=== PATIENT | male | born 1950 | race Caucasian/White ===

== ENCOUNTER 2017-06-28 14:23 | Emergency (ER) | payer OTHER ==
--- NOTE | 2017-06-28 14:30 | PDOC ---
History of Present Illness <Delvin Olson - Last Filed: 06/28/17 17:15> - General History Source: Patient Exam Limitations: No Limitations - History of Present Illness Initial Comments: 06/28/17 15:39 The patient is a 66 year old male with past medical history of hypertension, hyperlipidemia, panic attacks, and spinal fusion who presents to the ED with complaints of left sided chest and rib pain. The patient relates his pain from when he fell about a week ago, stating he was at a family members house for the holiday and fell 20 feet off the front steps. He reports being unsure of how he fell. He states he was treated at [facility] for three days, unsure of what he was being treating for, and was discharged with Percocet which he has run out off. He states his pain is worsened with deep inspiration and is accompanied by a productive cough. No further history can be provided due to the patient being a poor historian. The patient also is still wearing his medical ID bracelet from the other hospital. <Hedy Francis - Last Filed: 06/28/17 17:33> - General Chief Complaint: Pain Stated Complaint: LEFT RIB PAIN Time Seen by Provider: 06/28/17 14:29 Past History - Past Medical History HTN: Yes Hypercholesterolemia: Yes Psychiatric Problems: Yes (ANXIETY) - Suicide/Smoking/Psychosocial Hx Smoking History: Never smoked Hx Alcohol Use: No Substance Use Type: None <Delvin Olson - Last Filed: 06/28/17 17:15> <Hedy Francis - Last Filed: 06/28/17 17:33> - Past Medical History Allergies/Adverse Reactions: Allergies Allergy/AdvReac Type Severity Reaction Status Date / Time No Known Allergies Allergy Unverified 02/15/14 23:06 Home Medications: Ambulatory Orders Alprazolam [Xanax] 1.5 mg PO QID 02/15/14 Hydrocodone/Acetaminophen [Vicodin 5-300 mg Tablet] 1 each PO PRN #10 tablet Hydrocodone/Acetaminophen [Lortab 10-325 mg Tablet] 1 each PO Q6H PRN #15 tablet 05/13/15 Quetiapine Fumarate [Seroquel -] 50 mg PO DAILY 06/28/17 Review of Systems - Review of Systems Able to Perform ROS?: Yes Comments:: 06/28/17 15:39 GENERAL/CONSTITUTIONAL: No fever or chills. No weakness. HEAD, EYES, EARS, NOSE AND THROAT: No change in vision. No ear pain or discharge. No sore throat. CARDIOVASCULAR: Present: left chest pain No shortness of breath. RESPIRATORY: Present: cough No wheezing, or hemoptysis. GASTROINTESTINAL: No nausea, vomiting, diarrhea or constipation. GENITOURINARY: No dysuria, frequency, or change in urination. MUSCULOSKELETAL: Present: left rib pain No neck or back pain. SKIN: No rash NEUROLOGIC: No headache, vertigo, loss of consciousness, or change in strength/ sensation. ENDOCRINE: No increased thirst. No abnormal weight change. HEMATOLOGIC/LYMPHATIC: No anemia, easy bleeding, or history of blood clots. ALLERGIC/IMMUNOLOGIC: No hives or skin allergy. All Other Systems: Reviewed and Negative <Hedy Francis - Last Filed: 06/28/17 17:33> *Physical Exam - Vital Signs Last Vital Signs Temp Pulse Resp BP Pulse Ox 98 F 78 20 141/77 99 06/28/17 14:24 06/28/17 14:24 06/28/17 14:24 06/28/17 14:24 06/28/17 14:24 - Physical Exam Comments: 06/28/17 15:40 GENERAL: Awake, alert, and fully oriented, in no acute distress HEAD: No signs of trauma EYES: PERRLA, EOMI, sclera anicteric, conjunctiva clear ENT: Auricles normal inspection, hearing grossly normal, nares patent, oropharynx clear without exudates. Moist mucosa NECK: Normal ROM, supple, no lymphadenopathy, JVD, or masses LUNGS: Breath sounds equal, clear to auscultation bilaterally. No wheezes, and no crackles HEART: Regular rate and rhythm, normal S1 and S2, no murmurs, rubs or gallops ABDOMEN: Left rib tenderness on palpation, Soft, normoactive bowel sounds. No guarding, no rebound. No masses EXTREMITIES: Normal range of motion, no edema. No clubbing or cyanosis. No cords, erythema, or tenderness NEUROLOGICAL: Cranial nerves II through XII grossly intact. Normal speech, normal gait SKIN: Warm, Dry, normal turgor, no rashes or lesions noted. <Hedy Francis - Last Filed: 06/28/17 17:33> Heart Score/ECG Review - ECG Intrepretation Comment:: 06/28/17 16:17 ECG obtained at 16:05 Normal sinus rhythm at 68 bpm <Hedy Francis - Last Filed: 06/28/17 17:33> ED Treatment Course - RADIOLOGY Radiograph Interpretation: 06/28/17 17:[address] as reviewed by Dr. Mcknight reports subacute nondisplaced fracture of left 7th rib with edema and/or hematoma. Nonspecific pulmonary nodules seen up to 4 mm in left lower lobe. Mildly dilated main pulmonary artery. <Hedy Francis - Last Filed: 06/28/17 17:33> *DC/Admit/Observation/Transfer - Discharge Dispostion Admit: No - Attestations Physician Attestion: 06/28/17 15:27 I, Dr. Devlin Olson, attest that this document has been prepared under my direction and personally reviewed by me in its entirety. I further attest, that it accurately reflects all work, treatment, procedures and medical decision -making performed by me. <Delvin Olsno - Last Filed: 06/28/17 17:15> - Attestations Scribe Attestion: 06/28/17 15:41 Documentation prepared by Hedy Francis, acting as medical office assistant instructor for Delvin Olson DO. 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 You do have one rib fracture (#7) You will need to see a pain managment doctor for more percocet, or perhaps your primary care doctor. You have already had several short term prescriptions for Percocet/oxycodone. Best- Dr. Delvin Olson Take a copy of the CT Scan results with you so that you can show it to your doctor. You probably need a follow up CT scan of your chest in six months time.
[2017-06-28] MEDS ORDERED: ONDANSETRON *ODT* 4 MG TABLET SL ONE (15:26)
[2017-06-28 15:36] VITALS: BP 141/77; PULSE 78; TEMP 98; BMI 32.9
[2017-06-28] MEDS ORDERED: ONDANSETRON *ODT* 4 MG TABLET ONE (15:54)
--- NOTE | 2017-06-29 19:35 | EKG ---
Test Reason : Blood Pressure : / mmHG Vent. Rate : 068 BPM Atrial Rate : 068 BPM P-R Int : 180 ms QRS Dur : 094 ms QT Int : 418 ms P-R-T Axes : 039 044 071 degrees QTc Int : 444 ms NORMAL SINUS RHYTHM NORMAL ECG NO PREVIOUS ECGS AVAILABLE Confirmed by TACO ZHAO MD ([id number]) on 06/29/2017 7:34:50 PM Referred By: MD GATICA Confirmed By:TACO ZHAO MD
== END 2017-06-28 17:34 | disposition home or self-care (01) ==
LOC: FER 14:23
DX: S22.32XK Fracture of one rib, left side, subsequent encounter for fracture with nonunion (principal); W18.39XA Other fall on same level, initial encounter; Y93.89 Activity, other specified; Y92.9 Unspecified place or not applicable; F41.9 Anxiety disorder, unspecified; I10 Essential (primary) hypertension; E78.00 Pure hypercholesterolemia, unspecified
CPT/HCPCS: 71250-TC; 93005; 99282-25

== ENCOUNTER 2017-07-03 21:31 | Inpatient (IN) | payer OTHER ==
[2017-07-03 21:37] VITALS: BMI 32.3
--- NOTE | 2017-07-03 21:37 | PDOC ---
History of Present Illness - General History Source: Patient Exam Limitations: Dementia - History of Present Illness Initial Comments: 07/03/17 22:22 The patient is a 66 year old male, with a significant past medical history of spinal fusion and sciatica, who presents to the emergency department with, s/p fall. The patient is severely demented and reports to have fallen on a waxy floor. The patient was unable to form coherent statements. He reports to live with a roommate. He has three different hospital wrist bands. He frequently is in the ED for similar symptoms. He was at [facility] one week ago for similar symptoms requesting a prescription for Percocet and Valium. He denies any recent fevers, chills, headache or dizziness. He denies any recent nausea, vomit, diarrhea or constipation. He denies any recent chest pain or shortness of breath. He denies any recent dysuria, frequency, urgency or hematuria. Allergies: NKA Past surgical history: None reported. Social History: Nonsmoker. Denies EtOH use and recreational drug use. <Yasmin Pro - Last Filed: 07/03/17 22:24> <Delvin Olson - Last Filed: 07/04/17 02:16> - General Chief Complaint: Injury Stated Complaint: BIBA, FALL Time Seen by Provider: 07/03/17 21:37 Past History <Yasmin Pro - Last Filed: 07/03/17 22:24> - Past Medical History COPD: No HTN: Yes Hypercholesterolemia: Yes Psychiatric Problems: Yes (ANXIETY) - Suicide/Smoking/Psychosocial Hx Smoking History: Unknown if ever smoked Have you smoked in the past 12 months: No Number of Cigarettes Smoked Daily: 0 Information on smoking cessation initiated: No Hx Alcohol Use: No Drug/Substance Use Hx: No Substance Use Type: None <Delvin Olson - Last Filed: 07/04/17 02:16> - Past Medical History Allergies/Adverse Reactions: Allergies Allergy/AdvReac Type Severity Reaction Status Date / Time No Known Allergies Allergy Unverified 02/15/14 23:06 Home Medications: Ambulatory Orders Alprazolam [Xanax] 1.5 mg PO QID 02/15/14 Hydrocodone/Acetaminophen [Vicodin 5-300 mg Tablet] 1 each PO PRN #10 tablet Hydrocodone/Acetaminophen [Lortab 10-325 mg Tablet] 1 each PO Q6H PRN #15 tablet 05/13/15 Quetiapine Fumarate [Seroquel -] 50 mg PO DAILY 06/28/17 Review of Systems - Review of Systems Able to Perform ROS?: No Comments:: 07/03/17 22:22 Patient is severely incoherent and has three hospital wrist bands from different hospitals currently. <Yasmin Pro - Last Filed: 07/03/17 22:24> *Physical Exam - Vital Signs Last Vital Signs Temp Pulse Resp BP Pulse Ox 98 F 72 14 105/67 96 07/03/17 21:33 07/03/17 21:33 07/03/17 21:33 07/03/17 21:33 07/03/17 21:33 - Physical Exam Comments: 07/03/17 22:24 GENERAL: Awake, alert, and fully oriented, in no acute distress HEAD: No signs of trauma EYES: PERRLA, EOMI, sclera anicteric, conjunctiva clear ENT: Auricles normal inspection, hearing grossly normal, nares patent, oropharynx clear without exudates. Moist mucosa NECK: Normal ROM, supple, no lymphadenopathy, JVD, or masses LUNGS: Breath sounds equal, clear to auscultation bilaterally. No wheezes, and no crackles HEART: Regular rate and rhythm, normal S1 and S2, no murmurs, rubs or gallops ABDOMEN: Soft, nontender, normoactive bowel sounds. No guarding, no rebound. No masses EXTREMITIES: Normal range of motion, no edema. No clubbing or cyanosis. No cords, erythema, or tenderness NEUROLOGICAL: +Incapable of performing a neurological exam due to altered mental state. SKIN: Warm, Dry, normal turgor, no rashes or lesions noted. <Yasmin Pro - Last Filed: 07/03/17 22:24> - Vital Signs Last Vital Signs Temp Pulse Resp BP Pulse Ox 98 F 72 14 105/67 96 07/03/17 21:33 07/03/17 21:33 07/03/17 21:33 07/03/17 21:33 07/03/17 21:33 <Delvin Olson - Last Filed: 07/04/17 02:16> ED Treatment Course - LABORATORY CBC & Chemistry Diagram: 07/03/17 23:30 07/03/17 23:30 <Delvin Olson - Last Filed: 07/04/17 02:16> Medical Decision Making - Medical Decision Making 07/04/17 02:04 Patient has several armbands on his wrist and has had multiple visits here.... it is clear to me that he is too confused and weak to be at home.... He is not alert to person, place, time or situation. He can barely walk and he can barely follow commands. His work up is unremarkable except for some liver enzyme abnormalitis and some atrophy/brain loss on CT Scan. No family to let us know if this is his baseline mental status. He was taking narcotics and benzo's but I don't think he actually has any of those left. <Delvin Olson - Last Filed: 07/04/17 02:16> *DC/Admit/Observation/Transfer - Attestations Scribe Attestion: 07/03/17 22:23 Documentation prepared by Yasmin Pro, acting as medical consultant for Delvin Olson MD. <Yasmin Pro - Last Filed: 07/03/17 22:24> - Discharge Dispostion Admit: Yes - Attestations Physician Attestion: 07/03/17 21:37 I, Dr. Delvin Olson, attest that this document has been prepared under my direction and personally reviewed by me in its entirety. I further attest, that it accurately reflects all work, treatment, procedures and medical decision -making performed by me. <Delvin Olson - Last Filed: 07/04/17 02:16> Diagnosis at time of Disposition: Confusion, Generalized weakness Altered mental status Qualifiers: Altered mental status type: stupor Qualified Code(s): R40.1 - Stupor - Discharge Dispostion Condition at time of disposition: Good
[2017-07-03 23:42] LABS: BASOPHIL 1.7 % (0-2.0); EOSINOPHIL 1.7 % (0-4.5); MCH 30.2 pg (25.7-33.7); MCHC 32.9 g/dl (32.0-35.9); MEAN CELL VOLUME 91.8 fl (80-96); MEAN PLT VOLUME 8.8 fl (7.5-11.1); NEUTROPHILS 66.6 % (42.8-82.8); PLATELET COUNT 262 K/MM3 (134-434); RDW 13.5 % (11.9-15.9); WHITE BLOOD COUNT 10.7 K/mm3 (4.0-10.8)
[2017-07-03 23:48] LABS: INR 1.2 (0.82-1.09); PROTHROMBIN TIME (PATIENT) 13.4 SEC (10.2-13.0)
[2017-07-03 23:53] LABS: ALBUMIN 3.9 g/dl (3.5-5.0); ALK PHOS 98 U/L (32-92); ANION GAP 11 (8-16); BILIRUBIN,TOTAL 1.7 mg/dl (0.2-1.0); CO2 22 mmol/L (22-28); GLUCOSE,RANDOM 70 mg/dl (74-106); SGPT/ALT 106 U/L (10-40); TOT PROT 6.9 g/dl (6.4-8.3)
[2017-07-04 00:03] LABS: SGOT/AST 485 U/L (10-42)
[2017-07-04 01:51] LABS: URINE APPEARANCE SLCLOUDY; URINE BILIRUBIN NEGATIVE (NEGATIVE); URINE BLOOD 1+ (NEGATIVE); URINE COLOR YELLOW; URINE GLUCOSE (UA) NEGATIVE (NEGATIVE); URINE KETONE 2+ (NEGATIVE); URINE NITRITE NEGATIVE (NEGATIVE); URINE UROBILINOGEN NEGATIVE mg/dL (0.2-1.0)
[2017-07-04 02:00] LABS: URINE PROTEIN 1+ (NEGATIVE)
[2017-07-04 02:16] LABS: URINE BACTERIA RARE /hpf (NONE SEEN); URINE HYALINE CAST 17 /lpf; URINE MUCUS RARE; URINE RBC 1 /hpf (0-3); URINE WBC 2 /hpf (3-5)
[2017-07-04 02:22] LABS: URINE MARIJUANA THC NEGATIVE ng/ml (CUTOFF=50)
[2017-07-04] MEDS ORDERED: SODIUM CHLORIDE 1,000 ML IV SCH ×2 (02:30→13:59)
[2017-07-04] MEDS ORDERED: [UNRECOGNIZED DRUG - OTHER] PO PRN (10:31)
[2017-07-04] MEDS ORDERED: ACETAMINOPHEN PO PRN (10:31)
[2017-07-04] MEDS ORDERED: HYDROCODONE PO PRN (10:31)
--- NOTE | 2017-07-04 10:34 | HP ---
CHIEF COMPLAINT: s/p fall PCP: unknown HISTORY OF PRESENT ILLNESS: Patient is very poor historian with severe dementia. This is a 66 year old male with PMHx per chart of spinal fusion and sciatica who presented to the ED s/p mechanical fall. The patient denies any pain now. He is not able to recall the event. He was in the ED on 06/28 with the same issue and given Vicodin. The patient now has elevated total bilirubin. He denies any issues at this time. He is responding "no" to every question. ER course was notable for: (1) Temp 98, pulse 72, bp 141/77, resp 20, O2 99% on RA (2) Total bili 1.7, AST 485, ALT 106, Alk phos 98 (3) F/u liver ultrasound Recent Travel: unknown PAST MEDICAL HISTORY: denies PAST SURGICAL HISTORY: denies Social History: Smoking: unknown Alcohol: unknown Drugs: unknown Family History: Allergies No Known Allergies Allergy (Unverified 02/15/14 23:06) HOME MEDICATIONS: Home Medications Medication Instructions Recorded Alprazolam [Xanax] 1.5 mg PO QID 02/15/14 Hydrocodone/Acetaminophen [Vicodin 1 each PO PRN #10 tablet 02/15/14 5-300 mg Tablet] Hydrocodone/Acetaminophen [Lortab 1 each PO Q6H PRN #15 tablet 05/13/15 10-325 mg Tablet] Quetiapine Fumarate [Seroquel -] 50 mg PO DAILY 06/28/17 REVIEW OF SYSTEMS Unable to obtain PHYSICAL EXAMINATION Vital Signs - 24 hr 07/03/17 07/04/17 21:33 04:52 Temperature 98 F 97.4 F L Pulse Rate 72 68 Respiratory 14 18 Rate Blood Pressure 105/67 121/64 O2 Sat by Pulse 96 Oximetry (%) GENERAL: A&Ox1 HEAD: Normal with no signs of trauma. EYES: Pupils equal, round and reactive to light, extraocular movements intact, sclera anicteric, conjunctiva clear. No lid lag. EARS, NOSE, THROAT: Ears normal, nares patent, oropharynx clear without exudates. Moist mucous membranes. NECK: Normal range of motion, supple without lymphadenopathy, or masses. LUNGS: Breath sounds equal, clear to auscultation bilaterally HEART: Regular rate and rhythm, normal S1 and S2 ABDOMEN: Soft, nontender, not distended, normoactive bowel sounds, no guarding, no rebound, no masses. No hepatomegaly or splenomegaly. MUSCULOSKELETAL: Normal range of motion at all joints. No bony deformities or tenderness. No CVA tenderness. UPPER EXTREMITIES: 2+ pulses, warm, well-perfused. No cyanosis. No clubbing. No peripheral edema. LOWER EXTREMITIES: 2+ pulses, warm, well-perfused. No calf tenderness. No peripheral edema. NEUROLOGICAL: Unable to assess CN, patient uncooperative PSYCHIATRIC: Uncooperative SKIN: Warm, dry, normal turgor, no rashes or lesions noted, normal capillary refill. Laboratory Results - last 24 hr 07/03/17 07/03/17 07/03/17 23:30 23:30 23:30 WBC 10.7 D RBC 4.81 Hgb 14.6 Hct 44.2 MCV 91.8 MCH 30.2 MCHC 32.9 RDW 13.5 Plt Count 262 MPV 8.8 Neutrophils % 66.6 D Lymphocytes % 24.1 D Monocytes % 5.9 Eosinophils % 1.7 Basophils % 1.7 PT with INR 13.4 H INR 1.20 Sodium 139 Potassium 4.3 D Chloride 106 Carbon Dioxide 22 Anion Gap 11 BUN 33 H D Creatinine 1.0 D Creat Clearance w eGFR > 60 POC Glucometer Random Glucose 70 L Calcium 9.0 Total Bilirubin 1.7 H D AST 485 H D ALT 106 H D Alkaline Phosphatase 98 H D Ammonia Total Protein 6.9 Albumin 3.9 Urine Color Urine Appearance Urine pH Ur Specific [place] Urine Protein Urine Glucose (UA) Urine Ketones Urine Blood Urine Nitrite Urine Bilirubin Urine Urobilinogen Urine WBC (Auto) Urine RBC (Auto) Ur Epithelial Cells Urine Bacteria Hyaline Casts Urine Mucus Opiates Screen Methadone Screen Barbiturate Screen Phencyclidine Screen Ur Amphetamines Screen MDMA (Ecstasy) Screen Benzodiazepines Screen Cocaine Screen U Marijuana (THC) Screen Alcohol, Quantitative 07/03/17 07/04/17 07/04/17 23:30 00:22 00:30 WBC RBC Hgb Hct MCV MCH MCHC RDW Plt Count MPV Neutrophils % Lymphocytes % Monocytes % Eosinophils % Basophils % PT with INR INR Sodium Potassium Chloride Carbon Dioxide Anion Gap BUN Creatinine Creat Clearance w eGFR POC Glucometer Random Glucose Calcium Total Bilirubin AST ALT Alkaline Phosphatase Ammonia 23.30 Total Protein Albumin Urine Color Yellow Urine Appearance Slcloudy Urine pH 5.0 Ur Specific [place] 1.024 Urine Protein 1+ H Urine Glucose (UA) Negative Urine Ketones 2+ H Urine Blood 1+ H Urine Nitrite Negative Urine Bilirubin Negative Urine Urobilinogen Negative Urine WBC (Auto) 2 Urine RBC (Auto) 1 Ur Epithelial Cells Rare Urine Bacteria Rare Hyaline Casts 17 Urine Mucus Rare Opiates Screen Methadone Screen Barbiturate Screen Phencyclidine Screen Ur Amphetamines Screen MDMA (Ecstasy) Screen Benzodiazepines Screen Cocaine Screen U Marijuana (THC) Screen Alcohol, Quantitative < 5.0 L 07/04/17 07/04/17 07/04/17 01:16 03:56 06:41 WBC RBC Hgb Hct MCV MCH MCHC RDW Plt Count MPV Neutrophils % Lymphocytes % Monocytes % Eosinophils % Basophils % PT with INR INR Sodium Potassium Chloride Carbon Dioxide Anion Gap BUN Creatinine Creat Clearance w eGFR POC Glucometer 74 101 Random Glucose Calcium Total Bilirubin AST ALT Alkaline Phosphatase Ammonia Total Protein Albumin Urine Color Urine Appearance Urine pH Ur Specific [place] Urine Protein Urine Glucose (UA) Urine Ketones Urine Blood Urine Nitrite Urine Bilirubin Urine Urobilinogen Urine WBC (Auto) Urine RBC (Auto) Ur Epithelial Cells Urine Bacteria Hyaline Casts Urine Mucus Opiates Screen Positive Methadone Screen Negative Barbiturate Screen Negative Phencyclidine Screen Negative Ur Amphetamines Screen Negative MDMA (Ecstasy) Screen Negative Benzodiazepines Screen Positive Cocaine Screen Negative U Marijuana (THC) Screen Negative Alcohol, Quantitative Assessment: This is a 66 year old male with PMHx per chart of spinal fusion and sciatica, severe dementia who presented to the ED s/p mechanical fall. Plan: 1) S/p fall - No tenderness on exam - Head CT with mild to moderate volume loss, ventircular dilatation, mild periventricular chronic microvascular ischemic changes without gross evidence of acute intracranial pathology - Unknown if patient had mechanical fall vs. syncope as the patient is not able to recount the incident - Cardiac tele to r/o arrhythmia - ECHO - Carotid dopplers - Trend troponin - PT evaluation 2) Elevated total bilirubin - F/u abdominal ultrasound - Stop Vicodin - F/u tylenol level 3) Rhabdo - IV fluids, with caution as to assure no overload - Monitor respiratory function closely - Monitor CMP 4) Severe dementia - May benefit from short term rehab then detention placement 5) F/E/N: - Regular diet - Monitor electrolytes 6) Prophylaxis: - PT evaluation - Heparin 5,000u sq bid 7) Dispo: - Once condition improves CODE STATUS: FULL CODE Visit type - Emergency Visit Emergency Visit: Yes ED Registration Date: 07/04/17 Care time: The patient presented to the Emergency Department on the above date and was hospitalized for further evaluation of their emergent condition. - New Patient This patient is new to me today: Yes Date on this admission: 07/04/17 - Critical Care Critical Care patient: No
[2017-07-04 12:46] LABS: URINE LEUK ESTERASE Negative (NEGATIVE)
[2017-07-04 13:55] LABS: CPK 6055 IU/L (39-308)
[2017-07-04] MEDS ORDERED: ALPRAZolam 1 MG TABLET PO SCH (14:00)
[2017-07-04] MEDS ORDERED: ALPRAZOLAM 1.5 MG PO SCH (14:00)
[2017-07-04 14:34] LABS: TROPONIN I (DFP) < 0.03 ng/ml (0.03-0.50)
[2017-07-04] MEDS: ALPRAZolam 1 MG TABLET PO SCH ×2 (15:11→22:23)
[2017-07-04] MEDS: SODIUM CHLORIDE 1,000 ML IV SCH (15:16)
[2017-07-04 16:00] LABS: ALBUMIN 3.7 g/dl (3.5-5.0); ALK PHOS 90 U/L (32-92); ANION GAP 13 (8-16); BILIRUBIN,TOTAL 1.2 mg/dl (0.2-1.0); CALCIUM 9.1 mg/dl (8.4-10.2); CO2 20 mmol/L (22-28); CREATININE 0.8 mg/dl (0.6-1.3); GLUCOSE,RANDOM 75 mg/dl (74-106); SGPT/ALT 92 U/L (10-40); TOT PROT 6.5 g/dl (6.4-8.3)
[2017-07-04 16:01] LABS: SGOT/AST 422 U/L (10-42)
[2017-07-04 16:26] LABS: ALBUMIN 3.5 g/dl (3.5-5.0); ALK PHOS 88 U/L (32-92); ANION GAP 11 (8-16); BILIRUBIN,TOTAL 1.3 mg/dl (0.2-1.0); CALCIUM 8.9 mg/dl (8.4-10.2); CO2 21 mmol/L (22-28); CREATININE 0.7 mg/dl (0.6-1.3); GLUCOSE,RANDOM 97 mg/dl (74-106); SGOT/AST 336 U/L (10-42); SGPT/ALT 88 U/L (10-40); TOT PROT 6.4 g/dl (6.4-8.3)
[2017-07-04] MEDS: HEPARIN NA (PORCINE) 5,000 UNITS/ML 1ML VIAL SQ SCH (22:22)
[2017-07-05] MEDS ORDERED: IBUPROFEN 400 MG TABLET (FP) PO ONE ×2 (04:33→18:12)
[2017-07-05] MEDS: ALPRAZolam 1 MG TABLET PO SCH ×3 (05:44→21:28)
[2017-07-05 08:55] LABS: ALK PHOS 78 U/L (32-92); ANION GAP 3 (8-16); BILIRUBIN,TOTAL 0.4 mg/dl (0.2-1.0); CALCIUM 7.9 mg/dl (8.4-10.2); CO2 26 mmol/L (22-28); CREATININE 0.6 mg/dl (0.6-1.3); GLUCOSE,RANDOM 96 mg/dl (74-106); SGOT/AST 221 U/L (10-42); SGPT/ALT 70 U/L (10-40); TOT PROT 5.7 g/dl (6.4-8.3)
--- NOTE | 2017-07-05 09:40 | CONSULT ---
Admitting History and Physical - Primary Care Physician PCP: Imelda Walls - Admission Chief Complaint: Noted to intermittently cough with thin liquid History of Present Illness: This is a 66 year old male with PMHx per chart of spinal fusion and sciatica, severe dementia who presented to the ED s/p mechanical fall. Selected Entries 07/04/17 07/04/17 07/04/17 04:52 14:32 18:15 Supper Temperature 97.4 F L 98.2 F 97.9 F 07/04/17 07/04/17 07/04/17 19:57 20:53 22:41 Supper 100% Temperature 98.6 F 98.1 F 07/05/17 05:00 Supper Temperature 98.1 F Laboratory Tests 07/03/17 23:30 WBC 10.7 D - Smoking History Smoking history: Unknown if ever smoked Have you smoked in the past 12 months: No Aproximately how many cigarettes per day: 0 - Alcohol/Substance Use Hx Alcohol Use: No - Social History Usual Living Arrangement: Yes: With Parent Occupation: Retired teacher/administrator social welfare, per pt History - Admission Reason For Visit: ALTERED MENTAL STATUS/WEAKNESS. - Diagnostics X-ray: Report Reviewed CT Scan: Report Reviewed - General Mental Status: Alert and Oriented (Grossly oriented. Impaired insight.), Awake and Alert, Able to Follow Commands (Very slow to respond. Highly distractible.) , Forgetful, Vague, Intermittently Confused, Flat Affect Attention: Distractible, Moderate Impairment - Hearing Hearing: Normal, Deaf Hearing Aide: No With Patient: No Speech Evaluation - Communication Primary Language: FRISIAN Communication: Yes: Simple Responses (Very slow response time, loses track while speaking due to distractibility. Delayed word retrieval during propositional speech tasks, but able to name/repeat.) Oral Expression Ability: Yes: Mild Impairment, Moderate Impairment - Speech Production Able to Make Needs Known: Yes: Mildly Impaired Intelligibility: Yes: WNL - Speech Characteristics Voice Loudness: Normal Voice Pitch: Yes: Normal Voice Phonatory-based Quality: Yes: Normal Speech Clarity: < 100% Nasal Resonance: Normal Articulation: Yes: Precise - Language/Auditory Comprehension Follows: Yes: 1 Stage Simple Commands - Language/Verbal Expression Able to Respond to Simple Queries: Yes: Mildly Impaired, Moderately Impaired Able to Communicate Wants and Needs: Yes: Mildly Impaired, Moderately Impaired Functional Communication Status: Yes: Mildly Impaired, Moderately Impaired - Swallow Evaluation/Bedside Assessment Current Nutritional Intake: Regular, Thin Liquids Oral Secretions: Yes: WFL Dentition: Yes: Edentulous (upper- Dentures at home, per pt), Missing Teeth ( lower) Facial Symmetry at Rest: Symmetrical Facial Symmetry on Retraction: Symmetrical Against Resistance Opening: Normal Against Resistance Closing: Normal Pucker Lips: Normal Smile: Normal Lingual Movement: Symmetric Lingual Speed of Movement: Normal Lingual Movement Strgth Against Opposition: Reduced Lingual Movement Characteristics: Normal Laryngeal Elevation: WFL Laryngeal Movement: Able to Palpate, Labored,delay initiation Bolus Size: WFL Labial Seal: WFL Chewing: Impaired (needs his dentures. few natural teeth) Oral Prep Time: Increased Pocketing: None Timing of Swallow: Delayed Coughing/Throat Clear: No Change in Voice: No Recommendations - Speech Evaluation, Impression/Plan Impression: Very slow to respond. Highly distractible.Slow but accurate propositional speech. Risk of aspiration due to distractibility, with suspected aspiration before the swallow is generated if he is not focused.. Needs his dentures for safe mastication. - Disposition [facility] to[facility] (Speech/swallowing tx would benefit this pt.) - Dysphagia Impressions/Plan Dysphagia Impressions: Risk of Aspiration *Silent aspiration: cannot be R/O at bedside Dysphagia Treatment Plan: Small Bites, Clear Pocket Food, Safe Rate (Refocus pt while eating.), 1/2 tsp. at a time, Elevate HOB during feed Recommendations: Other (PLEASE OBTAIN PT's DENTURES) - Recommendations Diet Consistency: Mechanical Soft Medication Administration: Whole with water Liquids: Thin Liquids, Other (If cough, congestion, fever, downgrade to nectar, hopefully temporarily.)
--- NOTE | 2017-07-05 09:45 | PN ---
Physical Exam: SUBJECTIVE: Patient seen and examined, lethargic responds to verbal stimuli, voices no complaints. OBJECTIVE: patient is a 66 y/o male with a past medical history of a spinal fusion and dementia. patient was admitted from the emergency department for altered mental status. PCP: Dr Landa Vital Signs Period Temp Pulse Resp BP Sys/[place] Pulse Ox Last 24 Hr 97.9 F-98.6 F 58-70 18-20 92-121/60-76 94-96 GENERAL: The patient is lethargic, awakens to verbal stimuli, and oriented times person. HEAD: Normal with no signs of trauma. EYES: PERRL, extraocular movements intact, sclera anicteric, conjunctiva clear. No ptosis. ENT: Ears normal, nares patent, oropharynx clear without exudates, moist mucous membranes. NECK: Trachea midline, full range of motion, supple. LUNGS: Breath sounds equal, clear to auscultation bilaterally, no wheezes, no crackles, no accessory muscle use. HEART: Regular rate and rhythm, S1, S2 without murmur, rub or gallop. ABDOMEN: Soft,obese, nontender, nondistended, normoactive bowel sounds, no guarding, no rebound, + hepatosplenomegaly, no masses. EXTREMITIES: 2+ pulses, warm, well-perfused, no edema. NEUROLOGICAL: Cranial nerves II through XII grossly intact. Normal speech, gait not observed. PSYCH: Normal mood, normal affect. SKIN: Warm, dry, normal turgor, abrasions to billateral distal anterior extremites, no rashes or lesions noted Laboratory Results - last 24 hr CBC WBC 10.7 K/mm3 (4.0-10.8) D 07/03/17 23:30 RBC 4.81 M/mm3 (4.00-5.60) 07/03/17 23:30 Hgb 14.6 GM/dl (11.7-16.9) 07/03/17 23:30 Hct 44.2 % (35.4-49) 07/03/17 23:30 MCV 91.8 fl (80-96) 07/03/17 23:30 MCH 30.2 pg (25.7-33.7) 07/03/17 23:30 MCHC 32.9 g/dl (32.0-35.9) 07/03/17 23:30 RDW 13.5 % (11.9-15.9) 07/03/17 23:30 Plt Count 262 K/MM3 (134-434) 07/03/17 23:30 MPV 8.8 fl (7.5-11.1) 07/03/17 23:30 Neutrophils % 66.6 % (42.8-82.8) D 07/03/17 23:30 Lymphocytes % 24.1 % (8-40) D 07/03/17 23:30 Monocytes % 5.9 % (3.8-10.2) 07/03/17 23:30 Eosinophils % 1.7 % (0-4.5) 07/03/17 23:30 Basophils % 1.7 % (0-2.0) 07/03/17 23:30 CMP Sodium 139 mmol/L (136-145) 07/05/17 07:00 Potassium 3.7 mmol/L (3.5-5.1) 07/05/17 07:00 Chloride 110 mmol/L (98-107) H 07/05/17 07:00 Carbon Dioxide 26 mmol/L (22-28) D 07/05/17 07:00 Anion Gap 3 (8-16) L 07/05/17 07:00 BUN 18 mg/dl (7-18) D 07/05/17 07:00 Creatinine 0.6 mg/dl (0.6-1.3) 07/05/17 07:00 Creat Clearance w eGFR > 60 (>60) 07/05/17 07:00 POC Glucometer 101 UNITS (80-120) 07/04/17 06:41 Random Glucose 96 mg/dl (74-106) 07/05/17 07:00 Calcium 7.9 mg/dl (8.4-10.2) L 07/05/17 07:00 Total Bilirubin 0.4 mg/dl (0.2-1.0) D 07/05/17 07:00 AST 221 U/L (10-42) H D 07/05/17 07:00 ALT 70 U/L (10-40) H D 07/05/17 07:00 Alkaline Phosphatase 78 U/L (32-92) 07/05/17 07:00 Ammonia 23.30 umol/L (11-32) 07/04/17 00:22 Creatine Kinase 1924 IU/L (39-308) H 07/05/17 07:00 Creatine Kinase Index 1.1 % (0.0-5.0) 07/05/17 07:00 CK-MB (CK-2) 21.7 ng/mL (0.3-4.0) H 07/05/17 07:00 Troponin I < 0.03 ng/ml (0.03-0.50) L 07/04/17 10:00 Total Protein 5.7 g/dl (6.4-8.3) L 07/05/17 07:00 Albumin 3.0 g/dl (3.5-5.0) L 07/05/17 07:00 Active Medications Generic Name Dose Route Start Last Admin Trade Name Freq PRN Reason Stop Dose Admin Alprazolam 1.5 mg 07/04/17 14:30 07/05/17 05:44 Xanax PO 1.5 mg TID NICOLE Administration Heparin Sodium (Porcine) 5,000 unit 07/04/17 22:00 07/04/17 22:22 Heparin - SQ 5,000 unit BID NICOLE Administration Sodium Chloride 1,000 mls @ 125 mls/hr 07/04/17 15:00 07/04/17 15:16 Normal Saline - IV Not Given ASDIR NICOLE Quetiapine Fumarate 50 mg 07/05/17 10:00 Seroquel - PO DAILY NICOLE IMAGING ct of head: mild to moderate volume loss, ventriculuar dilation, microvascular ischemic changes. chest xray: no acute pathology carotid doppler: no evidence of hemodynamic stenosi ASSESSMENT/PLAN: 1) cardiovascular ? syncopal episode s/p unwitnessed fall - no events on cardiac monitoring - troponin x 3 wnl - pending echo report 2) nephrology rhabomyolosis - ck trending downward, 1924, continue ivf ns @ 125ml/hr repeat ck at 1300 2) GI transanimitis - LFT's trending downward, ammonia level ordered - abdominal ultrasound, + hepatostaisis, 4) neuro dementia - continue home dose seroquel - fall precautions 5) MS spinal stenosis - pt eval completed unable to sit or stand w/o assistance, patient may require care home placement, social media marketing specialist consulted - caution with narcotic pain medication dispo: patient requires inpatient admisison. Visit type - Emergency Visit Emergency Visit: Yes ED Registration Date: 07/04/17 Care time: The patient presented to the Emergency Department on the above date and was hospitalized for further evaluation of their emergent condition. - New Patient This patient is new to me today: Yes Date on this admission: 07/08/17 - Critical Care Critical Care patient: No - Discharge Referral Referred to [facility] Med P.C.: No
[2017-07-05] MEDS: HEPARIN NA (PORCINE) 5,000 UNITS/ML 1ML VIAL SQ SCH ×2 (09:46→21:28)
[2017-07-05] MEDS ORDERED: QUEtiapine FUMARATE 25 MG TABLET (FP) PO SCH (10:00)
[2017-07-05] MEDS ORDERED: POTASSIUM CHLORIDE TABS 20 MEQ TABLET.ER (FP) PO ONE (10:00)
[2017-07-05] MEDS ORDERED: QUEtiapine FUMARATE 50 MG TABLET PO SCH (10:00)
[2017-07-05 11:41] LABS: BASOPHIL 0.5 % (0-2.0); EOSINOPHIL 4.1 % (0-4.5); MCH 30.8 pg (25.7-33.7); MCHC 33.5 g/dl (32.0-35.9); MEAN CELL VOLUME 92.1 fl (80-96); MEAN PLT VOLUME 9.1 fl (7.5-11.1); NEUTROPHILS 57.8 % (42.8-82.8); PLATELET COUNT 229 K/MM3 (134-434); RDW 13.7 % (11.9-15.9); WHITE BLOOD COUNT 7.4 K/mm3 (4.0-10.8)
[2017-07-05] MEDS ORDERED: LACTULOSE 20 GM/30 ML UDC (FOR ORAL USE ONLY) PO ONE (13:30)
[2017-07-05] MEDS: SODIUM CHLORIDE 1,000 ML IV SCH (14:48)
[2017-07-05] MEDS: QUEtiapine FUMARATE 25 MG TABLET (FP) PO SCH (21:27)
[2017-07-05] MEDS ORDERED: LIDOCAINE PATCH REMOVAL MC SCH (22:00)
[2017-07-05] MEDS ORDERED: LIDOCAINE 5% TOPICAL PATCH TP ONE (23:01)
[2017-07-06] MEDS ORDERED: IBUPROFEN 400 MG TABLET (FP) PO ONE ×3 (01:14→17:15)
[2017-07-06] MEDS: ALPRAZolam 1 MG TABLET PO SCH ×3 (06:25→21:24)
--- NOTE | 2017-07-06 10:04 | PN ---
Physical Exam: SUBJECTIVE: Patient seen and examined. Complains of chronic back pain, reports he usually takes Vicodin for this. No other complaints. OBJECTIVE: Vital Signs Period Temp Pulse Resp BP Sys/[place] Pulse Ox Last 24 Hr 97.3 F-98.4 F 54-64 16-19 122-130/73-83 93-95 GENERAL: The patient is awake, alert, oriented to person and hospital. HEAD: Normal with no signs of trauma. EYES: PERRL, extraocular movements intact, sclera anicteric, conjunctiva clear. No ptosis. ENT: Ears normal, nares patent, oropharynx clear without exudates, moist mucous membranes. NECK: Trachea midline, full range of motion, supple. LUNGS: Breath sounds equal, clear to auscultation bilaterally, no wheezes, no crackles, no accessory muscle use. HEART: Regular rate and rhythm, S1, S2 without murmur, rub or gallop. ABDOMEN: Soft, nontender, nondistended, normoactive bowel sounds, no guarding, no rebound, no hepatosplenomegaly, no masses. EXTREMITIES: 2+ pulses, warm, well-perfused, no edema. NEUROLOGICAL: Cranial nerves II through XII grossly intact. Normal speech, gait not observed. PSYCH: Normal mood, normal affect. SKIN: Warm, dry, normal turgor, no rashes or lesions noted Laboratory Results - last 24 hr 07/05/17 07/05/17 07/05/17 07:20 10:00 10:45 WBC 7.4 D RBC 4.41 Hgb 13.6 Hct 40.6 MCV 92.1 MCH 30.8 MCHC 33.5 RDW 13.7 Plt Count 229 MPV 9.1 Neutrophils % 57.8 Lymphocytes % 30.8 D Monocytes % 6.8 Eosinophils % 4.1 D Basophils % 0.5 Magnesium 1.9 Ammonia 35.6 H Creatine Kinase Creatine Kinase Index CK-MB (CK-2) 07/05/17 07/05/17 07/05/17 13:00 18:00 18:00 WBC RBC Hgb Hct MCV MCH MCHC RDW Plt Count MPV Neutrophils % Lymphocytes % Monocytes % Eosinophils % Basophils % Magnesium Ammonia Creatine Kinase 1523 H 1159 H Creatine Kinase Index Cancelled Cancelled CK-MB (CK-2) Cancelled Cancelled Cancelled 07/06/17 07/06/1707/06/17 00:01 06:00 07:43 WBC RBC Hgb Hct MCV MCH MCHC RDW Plt Count MPV Neutrophils % Lymphocytes % Monocytes % Eosinophils % Basophils % Magnesium Ammonia Creatine Kinase 954 H Cancelled 677 H Creatine Kinase Index 0.9 1.4 CK-MB (CK-2) 9.324 H 9.9 H Active Medications Generic Name Dose Route Start Last Admin Trade Name Freq PRN Reason Stop Dose Admin Alprazolam 1.5 mg 07/04/17 14:30 07/06/17 06:25 Xanax PO Not Given TID NICOLE Heparin Sodium (Porcine) 5,000 unit 07/04/17 22:00 07/05/17 21:28 Heparin - SQ 5,000 unit BID NICOLE Administration Sodium Chloride 1,000 mls @ 125 mls/hr 07/04/17 15:00 07/05/17 14:48 Normal Saline - IV 125 mls/hr ASDIR NICOLE Administration Miscellaneous 1 each 07/05/17 22:00 07/05/17 23:00 Lidoderm Patch Removal MC 1 each DAILY@2200 NICOLE Administration Quetiapine Fumarate 50 mg 07/05/17 22:00 07/05/17 21:27 Seroquel - PO Not Given HS NICOLE IMAGING: CTH: mild to moderate volume loss, ventricular dilation, microvascular ischemic changes. chest xray: no acute pathology carotid doppler: no evidence of hemodynamically significant stenosis ASSESSMENT/PLAN: 1) cardiovascular ? syncopal episode and unwitnessed fall - no events on telemetry - troponin x 3 wnl - pending echo report 2) nephrology rhabomyolosis - ck trending downward (685 today, down from 6055 on admission); decrease NS to 75 mL/hr today 2) GI transanimitis - LFT's trending down - abdominal ultrasound, + hepatostaisis, 4) neuro dementia - continue home dose seroquel - fall precautions 5) MS spinal stenosis - pt eval completed unable to sit or stand w/o assistance, patient may require plating stripper placement, social media analyst consulted - caution with narcotic pain medication DISPO: Discussed with sister Luz Elena Brooks in [place] and she agrees that he will need SNF placement- will contact on Saturday. Visit type - Emergency Visit Emergency Visit: Yes ED Registration Date: 07/04/17 Care time: The patient presented to the Emergency Department on the above date and was hospitalized for further evaluation of their emergent condition. - New Patient This patient is new to me today: Yes Date on this admission: 07/07/17 - Critical Care Critical Care patient: No
[2017-07-06] MEDS: HEPARIN NA (PORCINE) 5,000 UNITS/ML 1ML VIAL SQ SCH ×2 (10:41→21:24)
[2017-07-06 11:15] LABS: ANION GAP 8 (8-16); CALCIUM 8.2 mg/dl (8.4-10.2); CO2 23 mmol/L (22-28); CREATININE 0.5 mg/dl (0.6-1.3); GLUCOSE,RANDOM 101 mg/dl (74-106)
[2017-07-06 11:17] LABS: BASOPHIL 0.3 % (0-2.0); EOSINOPHIL 2.9 % (0-4.5); MCH 30.7 pg (25.7-33.7); MCHC 33.5 g/dl (32.0-35.9); MEAN CELL VOLUME 91.6 fl (80-96); MEAN PLT VOLUME 8.8 fl (7.5-11.1); NEUTROPHILS 58.7 % (42.8-82.8); PLATELET COUNT 196 K/MM3 (134-434); RDW 13.3 % (11.9-15.9); WHITE BLOOD COUNT 5.6 K/mm3 (4.0-10.8)
[2017-07-06] MEDS ORDERED: SODIUM CHLORIDE 1,000 ML IV SCH (11:44)
[2017-07-06 13:09] LABS: ALBUMIN 3.1 g/dl (3.5-5.0); ALK PHOS 77 U/L (32-92); BILIRUBIN,TOTAL 0.5 mg/dl (0.2-1.0); SGOT/AST 148 U/L (10-42); SGPT/ALT 70 U/L (10-40); TOT PROT 5.9 g/dl (6.4-8.3)
[2017-07-06 13:39] LABS: BILIRUBIN,DIRECT < 0.2 mg/dL (0.0-0.3)
[2017-07-06] MEDS: QUEtiapine FUMARATE 25 MG TABLET (FP) PO SCH (21:23)
[2017-07-06] MEDS ORDERED: LIDOCAINE 5% TOPICAL PATCH TP ONE (22:03)
[2017-07-07] MEDS: ALPRAZolam 1 MG TABLET PO SCH ×3 (06:51→22:07)
[2017-07-07 09:04] LABS: BASOPHIL 0.4 % (0-2.0); EOSINOPHIL 4.8 % (0-4.5); MCH 31.8 pg (25.7-33.7); MCHC 34.2 g/dl (32.0-35.9); MEAN PLT VOLUME 9.2 fl (7.5-11.1); NEUTROPHILS 42.7 % (42.8-82.8); PLATELET COUNT 187 K/MM3 (134-434); RDW 13.4 % (11.9-15.9); WHITE BLOOD COUNT 5.9 K/mm3 (4.0-10.8)
[2017-07-07] MEDS: HEPARIN NA (PORCINE) 5,000 UNITS/ML 1ML VIAL SQ SCH ×2 (09:59→22:07)
[2017-07-07] MEDS ORDERED: LIDOCAINE PATCH REMOVAL MC ONE (10:00)
[2017-07-07 10:03] LABS: ALBUMIN 3.1 g/dl (3.5-5.0); ALK PHOS 73 U/L (32-92); ANION GAP 7 (8-16); BILIRUBIN,TOTAL 0.6 mg/dl (0.2-1.0); CALCIUM 8.4 mg/dl (8.4-10.2); CO2 25 mmol/L (22-28); CPK 384 IU/L (39-308); CREATININE 0.6 mg/dl (0.6-1.3); GLUCOSE,RANDOM 77 mg/dl (74-106); MAGNESIUM 1.5 mg/dL (1.8-2.4); SGOT/AST 109 U/L (10-42); SGPT/ALT 61 U/L (10-40); TOT PROT 5.7 g/dl (6.4-8.3)
[2017-07-07] MEDS ORDERED: POTASSIUM CHLORIDE TABS 20 MEQ TABLET.ER (FP) PO ONE (10:21)
[2017-07-07] MEDS ORDERED: MAGNESIUM SULF 50% (8.12 MEQ/2 ML-1 GM VIAL) IVPB ONE (12:08)
--- NOTE | 2017-07-07 12:09 | PN ---
Physical Exam: SUBJECTIVE: Patient seen and examined. Back pain improved. OBJECTIVE: Vital Signs Period Temp Pulse Resp BP Sys/[place] Pulse Ox Last 24 Hr 97.5 F-98 F 57-76 18-20 135-149/85-89 93-96 GENERAL: The patient is awake, alert, and fully oriented, in no acute distress. HEAD: Normal with no signs of trauma. EYES: PERRL, extraocular movements intact, sclera anicteric, conjunctiva clear. No ptosis. ENT: Ears normal, nares patent, oropharynx clear without exudates, moist mucous membranes. NECK: Trachea midline, full range of motion, supple. LUNGS: Breath sounds equal, clear to auscultation bilaterally, no wheezes, no crackles, no accessory muscle use. HEART: Regular rate and rhythm, S1, S2 without murmur, rub or gallop. ABDOMEN: Soft, nontender, nondistended, normoactive bowel sounds, no guarding, no rebound, no hepatosplenomegaly, no masses. EXTREMITIES: 2+ pulses, warm, well-perfused, no edema. NEUROLOGICAL: Cranial nerves II through XII grossly intact. Normal speech, gait not observed. PSYCH: Normal mood, normal affect. SKIN: Warm, dry, normal turgor, no rashes or lesions noted Laboratory Results - last 24 hr 07/06/17 07/06/17 07/07/17 10:45 10:45 06:20 WBC 5.6 5.9 RBC 4.48 4.03 Hgb 13.7 12.8 Hct 41.0 37.5 MCV 91.6 93.0 MCH 30.7 31.8 MCHC 33.5 34.2 RDW 13.3 13.4 Plt Count 196 187 MPV 8.8 9.2 Neutrophils % 58.7 42.7 L D Lymphocytes % 30.5 42.2 H D Monocytes % 7.6 9.9 Eosinophils % 2.9 4.8 H Basophils % 0.3 0.4 Sodium Potassium Chloride Carbon Dioxide Anion Gap BUN Creatinine Creat Clearance w eGFR Random Glucose Calcium Magnesium Total Bilirubin 0.5 D Direct Bilirubin < 0.2 AST 148 H D ALT 70 H Alkaline Phosphatase 77 Creatine Kinase Creatine Kinase Index CK-MB (CK-2) Total Protein 5.9 L Albumin 3.1 L 07/07/17 06:20 WBC RBC Hgb Hct MCV MCH MCHC RDW Plt Count MPV Neutrophils % Lymphocytes % Monocytes % Eosinophils % Basophils % Sodium 140 Potassium 3.4 L Chloride 108 H Carbon Dioxide 25 Anion Gap 7 L BUN 7 D Creatinine 0.6 Creat Clearance w eGFR > 60 Random Glucose 77 D Calcium 8.4 Magnesium 1.5 L D Total Bilirubin 0.6 Direct Bilirubin AST 109 H D ALT 61 H Alkaline Phosphatase 73 Creatine Kinase 384 H Creatine Kinase Index 1.7 CK-MB (CK-2) 6.7 H Total Protein 5.7 L Albumin 3.1 L Active Medications Generic Name Dose Route Start Last Admin Trade Name Freq PRN Reason Stop Dose Admin Alprazolam 1.5 mg 07/04/17 14:30 07/07/17 06:51 Xanax PO 1.5 mg TID NICOLE Administration Heparin Sodium (Porcine) 5,000 unit 07/04/17 22:00 07/07/17 09:59 Heparin - SQ 5,000 unit BID NICOLE Administration Sodium Chloride 1,000 mls @ 75 mls/hr 07/06/17 11:44 07/06/17 11:30 Normal Saline - IV 75 mls/hr ASDIR NICOLE Administration Magnesium Sulfate 2 gm 07/07/17 12:08 Magnesium Sulfate IVPB 07/07/17 12:09 ONCE ONE Oxycodone/Acetaminophen 1 combo 07/06/17 10:51 07/07/17 10:42 Percocet 5/325 - PO 1 combo Q6H PRN Administration PAIN LEVEL 6-10 Quetiapine Fumarate 50 mg 07/05/17 22:00 07/06/17 21:23 Seroquel - PO Not Given HS [facility] IMAGING: CTH: mild to moderate volume loss, ventricular dilation, microvascular ischemic changes. chest xray: no acute pathology carotid doppler: no evidence of hemodynamically significant stenosis ASSESSMENT/PLAN: 1) cardiovascular ? syncopal episode and unwitnessed fall - no events on telemetry - troponin x 3 wnl - pending echo report 2) nephrology rhabomyolosis - ck trending downward (385 today, down from 6055 on admission); dc IVF 2) GI transanimitis - LFT's trending down - abdominal ultrasound, + hepatostaisis, 4) neuro dementia - continue home dose seroquel - fall precautions 5) MS spinal stenosis - pt eval completed unable to sit or stand w/o assistance, patient may require [facility] placement, high school social studies teacher consulted - caution with narcotic pain medication DISPO: Discussed with sister Luz Elena Brooks in [place] and she agrees that he will need SNF placement- will contact SW on Saturday.
[2017-07-07] MEDS: QUEtiapine FUMARATE 25 MG TABLET (FP) PO SCH (22:02)
[2017-07-07] MEDS ORDERED: LIDOCAINE 5% TOPICAL PATCH TP ONE (23:35)
[2017-07-08] MEDS: ALPRAZolam 1 MG TABLET PO SCH ×3 (06:25→21:02)
[2017-07-08] MEDS ORDERED: LIDOCAINE PATCH REMOVAL MC ONE (10:00)
--- NOTE | 2017-07-08 10:42 | PN ---
Progress Note, IT AUDITOR - Note Progress Note: Pt much improved today. More verbal, more appropriate, no longer distractible. Not c/w "severe dementia' as originally documented. Case reviewed with PNP. Pt with many pain meds upon admission and h/o ETOH abuse. Swallowing is functional. He is tolerating his diet.
[2017-07-08] MEDS: HEPARIN NA (PORCINE) 5,000 UNITS/ML 1ML VIAL SQ SCH ×2 (10:46→21:02)
--- NOTE | 2017-07-08 14:28 | DS ---
Physical Exam: SUBJECTIVE: Patient seen and examined, ambulatory at bedside with walker, ambulated with walker, denies any pain, eager to go home . OBJECTIVE:Patient is very poor historian with severe dementia. This is a 66 year old male with PMHx per chart of spinal fusion and sciatica who presented to the ED s/p mechanical fall. The patient denies any pain now. He is not able to recall the event. He was in the ED on 06/28 with the same issue and given Vicodin. The patient now has elevated total bilirubin. He denies any issues at this time. He is responding "no" to every question. ER course was notable for: (1) Temp 98, pulse 72, bp 141/77, resp 20, O2 99% on RA (2) Total bili 1.7, AST 485, ALT 106, Alk phos 98 (3) F/u liver ultrasound Vital Signs Period Temp Pulse Resp BP Sys/[place] Pulse Ox Last 24 Hr 97.7 F-98.3 F 56-76 17-18 129-154/81-95 95-96 PHYSICAL EXAM GENERAL: The patient is awake, alert, and fully oriented, in no acute distress. HEAD: Normal with no signs of trauma. EYES: PERRL, extraocular movements intact, sclera anicteric, conjunctiva clear. No ptosis. ENT: Ears normal, nares patent, oropharynx clear without exudates, moist mucous membranes. NECK: Trachea midline, full range of motion, supple. LUNGS: Breath sounds equal, clear to auscultation bilaterally, no wheezes, no crackles, no accessory muscle use. HEART: Regular rate and rhythm, S1, S2 without murmur, rub or gallop. ABDOMEN: Soft, nontender, nondistended, normoactive bowel sounds, no guarding, no rebound, no hepatosplenomegaly, no masses. EXTREMITIES: 2+ pulses, warm, well-perfused, no edema. NEUROLOGICAL: Cranial nerves II through XII grossly intact. Normal speech, gait not observed. PSYCH: Normal mood, normal affect. SKIN: Warm, dry, normal turgor, no rashes or lesions noted LABS CBC WBC 5.9 K/mm3 (4.0-10.8) 07/07/17 06:20 RBC 4.03 M/mm3 (4.00-5.60) 07/07/17 06:20 Hgb 12.8 GM/dl (11.7-16.9) 07/07/17 06:20 Hct 37.5 % (35.4-49) 07/07/17 06:20 MCV 93.0 fl (80-96) 07/07/17 06:20 MCH 31.8 pg (25.7-33.7) 07/07/17 06:20 MCHC 34.2 g/dl (32.0-35.9) 07/07/17 06:20 RDW 13.4 % (11.9-15.9) 07/07/17 06:20 Plt Count 187 K/MM3 (134-434) 07/07/17 06:20 MPV 9.2 fl (7.5-11.1) 07/07/17 06:20 Neutrophils % 42.7 % (42.8-82.8) L D 07/07/17 06:20 Lymphocytes % 42.2 % (8-40) H D 07/07/17 06:20 Monocytes % 9.9 % (3.8-10.2) 07/07/17 06:20 Eosinophils % 4.8 % (0-4.5) H 07/07/17 06:20 Basophils % 0.4 % (0-2.0) 07/07/17 06:20 CMP Sodium 140 mmol/L (136-145) 07/07/17 06:20 Potassium 3.4 mmol/L (3.5-5.1) L 07/07/17 06:20 Chloride 108 mmol/L (98-107) H 07/07/17 06:20 Carbon Dioxide 25 mmol/L (22-28) 07/07/17 06:20 Anion Gap 7 (8-16) L 07/07/17 06:20 BUN 7 mg/dl (7-18) D 07/07/17 06:20 Creatinine 0.6 mg/dl (0.6-1.3) 07/07/17 06:20 Creat Clearance w eGFR > 60 (>60) 07/07/17 06:20 POC Glucometer 101 UNITS (80-120) 07/04/17 06:41 Random Glucose 77 mg/dl (74-106) D 07/07/17 06:20 Calcium 8.4 mg/dl (8.4-10.2) 07/07/17 06:20 Magnesium 1.5 mg/dL (1.8-2.4) L D 07/07/17 06:20 Total Bilirubin 0.6 mg/dl (0.2-1.0) 07/07/17 06:20 Direct Bilirubin < 0.2 mg/dL (0.0-0.3) 07/06/17 10:45 AST 109 U/L (10-42) H D 07/07/17 06:20 ALT 61 U/L (10-40) H 07/07/17 06:20 Alkaline Phosphatase 73 U/L (32-92) 07/07/17 06:20 Ammonia 35.6 umol/L (11-32) H 07/05/17 10:45 Creatine Kinase 384 IU/L (39-308) H 07/07/17 06:20 Creatine Kinase Index 1.7 % (0.0-5.0) 07/07/17 06:20 CK-MB (CK-2) 6.7 ng/mL (0.3-4.0) H 07/07/17 06:20 Troponin I < 0.03 ng/ml (0.03-0.50) L 07/04/17 10:00 Total Protein 5.7 g/dl (6.4-8.3) L 07/07/17 06:20 Albumin 3.1 g/dl (3.5-5.0) L 07/07/17 06:20 IMAGING: CTH: mild to moderate volume loss, ventricular dilation, microvascular ischemic changes. chest xray: no acute pathology carotid doppler: no evidence of hemodynamically significant stenosis HOSPITAL COURSE: * ? syncopal episode and unwitnessed fall, no events on telemetry, troponin x 3 wnl, echo grade I diastolic dysfunction, LV wnl * rhabomyolosis, ck trending downward (385 today, down from 6055 on admission) ; treated with IV hydration * LFT's trending down, abdominal ultrasound, + hepatostaisis * dementia, continued home dose seroquel, fall precautions * metabolic encephalopathy secondary rhabdomylosis, resolved patient is back to baseline. PLAN - discharge to SNF for short term rehab - continue all medication as prescribed Date of Admission:07/04/17 Date of Discharge: 07/08/17 Minutes to complete discharge: 45 Discharge Summary Reason For Visit: ALTERED MENTAL STATUS/WEAKNESS. Current Active Problems Altered mental status (Acute) Confusion (Acute) Generalized weakness (Acute) Condition: Improved - Instructions Diet, Activity, Other Instructions: resume regular low sodium diet continue all medications as prescribed if any new or persistent symptoms develop please return to the emergency department Referrals: Cordell Reynolds [Non Staff, Medical] - Disposition: [facility] - Home Medications Comprehensive Discharge Medication List: Ambulatory Orders Alprazolam [Xanax] 1.5 mg PO QID 02/15/14 Hydrocodone/Acetaminophen [Vicodin 5-300 mg Tablet] 1 each PO PRN #10 tablet Hydrocodone/Acetaminophen [Lortab 10-325 mg Tablet] 1 each PO Q6H PRN #15 tablet 05/13/15 Quetiapine Fumarate [Seroquel -] 50 mg PO DAILY 06/28/17 This patient is new to me today: No Emergency Visit: Yes ED Registration Date: 07/04/17 Care time: The patient presented to the Emergency Department on the above date and was hospitalized for further evaluation of their emergent condition. Critical Care patient: No - Discharge Referral Referred to [facility] Med P.C.: No
[2017-07-08] MEDS: QUEtiapine FUMARATE 25 MG TABLET (FP) PO SCH (21:06)
[2017-07-08] MEDS ORDERED: LIDOCAINE 5% TOPICAL PATCH TP ONE (21:24)
[2017-07-09] MEDS: ALPRAZolam 1 MG TABLET PO SCH ×2 (05:47→13:43)
[2017-07-09 06:31] VITALS: BP 137/81; PULSE 57; TEMP 97.8
[2017-07-09] MEDS: HEPARIN NA (PORCINE) 5,000 UNITS/ML 1ML VIAL SQ SCH (09:29)
[2017-07-09] MEDS ORDERED: LIDOCAINE PATCH REMOVAL MC SCH (10:00)
[2017-07-09] MEDS ORDERED: oxyCODONE HCL 5 MG TABLET ONE (10:58)
[2017-07-09] MEDS: oxyCODONE HCL 5 MG TABLET PO ONE ×2 (11:01→13:37)
== END 2017-07-09 14:10 | DRG 557 ==
LOC: FER 21:31 → FM/S 07-04 02:14 → UNDOADMOB 07-04 02:14 → INTOOBSV 07-04 02:56 → UNDOADMOB 07-04 02:56 → FM/S 07-04 02:56 → OBSVTOIN 07-04 16:03 → INTOOBSV 07-04 16:03
PROVIDERS: ADMIT Internal Medicine; ATTEND Nurse Practitioner Family
DX: M62.82 Rhabdomyolysis (principal); G93.41 Metabolic encephalopathy; F03.90 Unspecified dementia, unspecified severity, without behavioral disturbance, psychotic disturbance, mood disturbance, and anxiety; R41.82 Altered mental status, unspecified; R55 Syncope and collapse; R53.1 Weakness; R74.0 Nonspecific elevation of levels of transaminase and lactic acid dehydrogenase [LDH]; M48.00 Spinal stenosis, site unspecified
CPT/HCPCS: 36415; 70450-TC; 71010-TC; 76705-TC; 80048; 80053; 80074; 80076; 80307; 81003; 81015; 82140; 82550; 82553; 83735; 83874; 84484; 85025; 85610; 93306-TC; 93880-TC; 97116-GP; 97162-GP; 99283-25; G0378; J1644

== ENCOUNTER 2018-06-13 15:48 | Emergency (ER) | payer OTHER ==
[2018-06-13 16:08] VITALS: BP 154/97; PULSE 86; TEMP 98.9; BMI 20.9
[2018-06-13] MEDS ORDERED: CEPHALEXIN MONOHYDRATE 500 MG CAPSULE (UD) PO ONE (16:32)
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
[2018-06-13] MEDS ORDERED: CEPHALEXIN MONOHYDRATE 500 MG CAPSULE (UD) ONE (16:57)
== END 2018-06-13 17:21 | disposition home or self-care (01) ==
LOC: FER 15:48
DX: M54.5 Low back pain (principal); W00.0XXA Fall on same level due to ice and snow, initial encounter; Y93.89 Activity, other specified; Y92.410 Unspecified street and highway as the place of occurrence of the external cause; I10 Essential (primary) hypertension; F41.9 Anxiety disorder, unspecified; F03.90 Unspecified dementia, unspecified severity, without behavioral disturbance, psychotic disturbance, mood disturbance, and anxiety
CPT/HCPCS: 72100-TC-FY; 72170-TC-FY; 99283-25

== ENCOUNTER 2018-06-16 08:26 | Emergency (ER) | payer OTHER ==
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
[2018-06-16 08:36] VITALS: TEMP 97.8; BMI 35.9
[2018-06-16] MEDS ORDERED: LIDOCAINE HCL 1%, 10 MG/ML (50 mL VIAL) SQ ONE (08:45)
[2018-06-16] MEDS ORDERED: METHOCARBAMOL 500 MG TABLET PO ONE (08:45)
[2018-06-16] MEDS ORDERED: LIDOCAINE HCL 1%, 10 MG/ML (20ML VIAL) ONE (08:50)
[2018-06-16] MEDS ORDERED: METHOCARBAMOL 500 MG TABLET ONE ×2 (08:51)
[2018-06-16] MEDS ORDERED: SULFAMETHOXAZOLE/TRIMETHOPRIM 800MG/160MG D.S. TABLET PO ONE (10:09)
[2018-06-16 10:14] VITALS: BP 132/89; PULSE 92
[2018-06-16] MEDS ORDERED: SULFAMETHOXAZOLE/TRIMETHOPRIM 800MG/160MG D.S. TABLET ONE (10:22)
== END 2018-06-16 10:29 | disposition home or self-care (01) ==
LOC: FER 08:26
PROC: 0H9BXZZ Drainage of Right Upper Arm Skin, External Approach (ICD-10-PCS; principal; 2018-06-16)
DX: M54.5 Low back pain (principal); L02.411 Cutaneous abscess of right axilla; I10 Essential (primary) hypertension; F03.90 Unspecified dementia, unspecified severity, without behavioral disturbance, psychotic disturbance, mood disturbance, and anxiety; E78.00 Pure hypercholesterolemia, unspecified; F41.9 Anxiety disorder, unspecified; Z98.1 Arthrodesis status
CPT/HCPCS: 10060; 72131-TC; 99282-25

== ENCOUNTER 2018-10-09 15:08 | Emergency (ER) | payer OTHER ==
[2018-10-09 15:16] VITALS: BP 164/93; PULSE 98; TEMP 97.8; BMI 32.5
--- NOTE | 2018-10-09 15:47 | PDOC ---
History of Present Illness - General Chief Complaint: Back Pain Stated Complaint: BACK PAIN Time Seen by Provider: 10/09/18 15:47 - History of Present Illness Initial Comments: 10/09/18 16:36 67 years old past medical history significant for chronic low back pain status post fusion, hypertension, hyperlipidemia, questionable early dementia presents to the ED with severe low back pain different than his chronic back pain. This episode started while at rest is in his mid back radiates bilaterally around both sides to his abdomen/buttocks It is severe 10 out of 10 persistent constant patient cannot get comfortable there are no clear exacerbating or alleviating factors. Past History - Past Medical History Allergies/Adverse Reactions: Allergies Allergy/AdvReac Type Severity Reaction Status Date / Time diphenhydramine Allergy Verified 10/09/18 15:10 [From Benadryl] RAMIREZ Allergy Uncoded 10/09/18 16:50 Home Medications: Ambulatory Orders Aspirin [ASA -] 325 mg PO DAILY 06/13/18 Clonazepam 1 mg PO DAILY PRN 10/09/18 Oxycodone HCl/Acetaminophen [Percocet 5/325 -] 1 tab PO Q6H #14 tablet MDD 4 COPD: No Dementia: Yes HTN: Yes Hypercholesterolemia: Yes Psychiatric Problems: Yes (ANXIETY) - Surgical History Abdominal Surgery: Yes (HERNIA) Cholecystectomy: Yes Orthopedic Surgery: Yes (SPINAL FUSION) - Suicide/Smoking/Psychosocial Hx Smoking History: Never smoked Have you smoked in the past 12 months: No Number of Cigarettes Smoked Daily: 0 Information on smoking cessation initiated: No Hx Alcohol Use: No Drug/Substance Use Hx: No Substance Use Type: None Review of Systems - Review of Systems Comments:: 10/09/18 16:36 ROS: A complete review of 10 out of 10 review of systems is taken and is negative apart from what is previously mentioned below and in the HPI. *Physical Exam - Vital Signs Last Vital Signs Temp Pulse Resp BP Pulse Ox 97.8 F 98 H 18 164/93 97 10/09/18 15:08 10/09/18 15:08 10/09/18 15:08 10/09/18 15:08 10/09/18 15:08 - Physical Exam Comments: 10/09/18 16:36 Vitals: Triage Vital signs reviewed General Appearance: no acute distress, well nourished well developed, Head: Atraumatic, Neck: Supple;No Nucal rigidity Chest Wall: Nontender Cardiac: Regular rate and rhythym, no murmurs, no rubs, no gallops, Lungs: Clear to auscultation bilateral, good air movement bilaterally, Abdomen: Soft, non distended, normal bowel sounds, non tender to palpation Extremities: Full range of motion to all extremities, no cyanosis, clubbing, or edema Skin: Warm and dry, no rashes or lesions, no rash, no petechiae Neuro: Cranial Nerves 2-12 grossly intact, difficulty with extension at the leg secondary to pain, Sensation intact to all extremities,gait normal Psych: normal mood, normal affect Moderate Sedation - Procedure Monitoring Vital Signs: Procedure Monitoring Vital Signs Temperature 97.8 F 10/09/18 15:08 Pulse Rate 98 H 10/09/18 15:08 Respiratory Rate 18 10/09/18 15:08 Blood Pressure 164/93 10/09/18 15:08 O2 Sat by Pulse Oximetry (%) 97 10/09/18 15:08 ED Treatment Course - LABORATORY CBC & Chemistry Diagram: 10/09/18 16:20 10/09/18 16:20 Medical Decision Making - Medical Decision Making 10/09/18 16:37 Circumferential radiation of low back pain patient states very different than his chronic back pain atraumatic Given age and risk factors and radiation component we'll perform abdomen pelvis CTA to rule out dissection Dr. Chavez follow up labs CAT scan reevaluate and dispel. *DC/Admit/Observation/Transfer Diagnosis at time of Disposition: Low back pain Qualifiers: Chronicity: acute Back pain laterality: bilateral Sciatica presence: unspecified whether sciatica present Qualified Code(s): M54.5 - Low back pain - Discharge Dispostion Disposition: AGAINST MEDICAL ADVICE Condition at time of disposition: Stable - Prescriptions Prescriptions: Oxycodone HCl/Acetaminophen [Percocet 5/325 -] 1 tab PO Q6H #14 tablet MDD 4 - Referrals Referrals: Cordell Reynolds [Primary Care Provider] - - Patient Instructions Additional Instructions: You were seen in the Emergency Department for evaluation of back pain. You have elected to leave against medical advice. If your symptoms worsen or change, please return to the Emergency Department. Also return if you develop fevers/ chills, worsening pain, change in strength or sensation, or any new/concerning symptoms. - Post Discharge Activity
[2018-10-09] MEDS ORDERED: ACETAMINOPHEN 1000 MG/100 ML VIAL (NON FORMULARY) IVPB ONE (15:57)
[2018-10-09] MEDS ORDERED: morphine CARPU-JECT 4 MG/1 ML DISP.SYRIN IVPUSH ONE (15:57)
[2018-10-09] MEDS ORDERED: SODIUM CHLORIDE 0.9% 1000 ML INFUS.BAG IV ONE (15:57)
[2018-10-09] MEDS ORDERED: ACETAMINOPHEN INJECTION 100 ML IVPB ONE (16:25)
[2018-10-09] MEDS ORDERED: morphine SULFATE 4 MG/ML VIAL ONE (16:26)
[2018-10-09 16:38] LABS: BASO % 1.1 % (0-2.0); EOS % 4.4 % (0-4.5); HEMOGLOBIN 16.9 GM/dl (11.7-16.9); LYMPH % 38.7 % (8-40); MCH 30.8 pg (25.7-33.7); MCHC 32.5 g/dl (32.0-35.9); MEAN CELL VOLUME 94.9 fl (80-96); MONO % 10.3 % (3.8-10.2); NEUT % 45.5 % (42.8-82.8); PLATELET COUNT 226 K/MM3 (134-434); RBC 5.48 M/mm3 (4.00-5.60); RDW 12.7 % (11.9-15.9); WHITE BLOOD COUNT 10.8 K/mm3 (4.0-10.8)
[2018-10-09 16:53] LABS: ALK PHOS 92 U/L (45-117); ANION GAP 8 MMOL/L (8-16); BILIRUBIN,TOTAL 0.6 mg/dl (0.2-1); BLOOD UREA NITROGEN 11 mg/dl (7-18); CALCIUM 8.9 mg/dl (8.5-10); CHLORIDE 105 mmol/L (98-107); CO2 23 mmol/L (21-32); CREATININE 0.8 mg/dl (0.55-1.3); GLUCOSE,RANDOM 81 mg/dl (74-106); POTASSIUM 4.2 mmol/L (3.5-5.1); SGOT/AST 84 U/L (15-37); SGPT/ALT 58 U/L (13-61); SODIUM 136 mmol/L (136-145); TOT PROT 7.8 g/dl (6.4-8.2)
[2018-10-09 17:00] LABS: INR 1.11 (0.82-1.09); PROTHROMBIN TIME (PATIENT) 12.4 SEC (10.2-13.0)
[2018-10-09 17:22] LABS: PH,URINE 5.5 (4.5-8); URINE APPEARANCE Clear; URINE BILIRUBIN Negative (NEGATIVE); URINE COLOR Yellow; URINE GLUCOSE (UA) Negative (NEGATIVE); URINE KETONE Negative (NEGATIVE); URINE LEUK ESTERASE Negative (NEGATIVE); URINE NITRITE Negative (NEGATIVE); URINE PROTEIN Negative (NEGATIVE); URINE UROBILINOGEN 0.2 (0.2-1.0)
[2018-10-09 17:39] LABS: URINE BACTERIA 2+ /hpf (NEGATIVE); URINE WBC 0-2 (0-2)
[2018-10-09] MEDS ORDERED: KETOROLAC TROMETHAMINE 30 MG/1 ML VIAL IVPUSH ONE (17:54)
[2018-10-09] MEDS ORDERED: METHOCARBAMOL 500 MG TABLET PO ONE (17:54)
[2018-10-09] MEDS ORDERED: KETOROLAC TROMETHAMINE 30 MG/1 ML VIAL ONE (17:56)
[2018-10-09] MEDS ORDERED: METHOCARBAMOL 500 MG TABLET ONE (17:56)
--- NOTE | 2018-10-09 19:23 | PDOC ---
*Physical Exam - Vital Signs Last Vital Signs Temp Pulse Resp BP Pulse Ox 97.8 F 98 H 18 164/93 97 10/09/18 15:08 10/09/18 15:08 10/09/18 15:08 10/09/18 15:08 10/09/18 15:08 ED Treatment Course - LABORATORY CBC & Chemistry Diagram: 10/09/18 16:20 10/09/18 16:20 - ADDITIONAL ORDERS Additional order review: Laboratory Results 10/09/18 10/09/18 10/09/18 17:00 16:20 16:20 PT with INR 12.4 INR 1.11 PTT (Actin FS) 32.0 Sodium Potassium Chloride Carbon Dioxide Anion Gap BUN Creatinine Creat Clearance w eGFR Random Glucose Calcium Total Bilirubin AST ALT Alkaline Phosphatase Total Protein Albumin Urine Color Yellow Urine Appearance Clear Urine pH 5.5 Ur Specific [place] 1.025 Urine Protein Negative Urine Glucose (UA) Negative Urine Ketones Negative Urine Blood Trace-intact H Urine Nitrite Negative Urine Bilirubin Negative Urine Urobilinogen 0.2 Ur Leukocyte Esterase Negative Urine RBC 2-5 Urine WBC 0-2 Urine Bacteria 2+ Blood Type O NEGATIVE Antibody Screen Negative 10/09/18 16:20 PT with INR INR PTT (Actin FS) Sodium 136 Potassium 4.2 Chloride 105 Carbon Dioxide 23 Anion Gap 8 BUN 11 Creatinine 0.8 Creat Clearance w eGFR 96.13 Random Glucose 81 Calcium 8.9 Total Bilirubin 0.6 AST 84 H ALT 58 Alkaline Phosphatase 92 Total Protein 7.8 Albumin 4.0 Urine Color Urine Appearance Urine pH Ur Specific [place] Urine Protein Urine Glucose (UA) Urine Ketones Urine Blood Urine Nitrite Urine Bilirubin Urine Urobilinogen Ur Leukocyte Esterase Urine RBC Urine WBC Urine Bacteria Blood Type Antibody Screen 10/09/18 16:20 RBC 5.48 MCV 94.9 MCHC 32.5 RDW 12.7 MPV 9.0 Neutrophils % 45.5 Lymphocytes % 38.7 Monocytes % 10.3 H Eosinophils % 4.4 Basophils % 1.1 - Medications Given in the ED: ED Medications Discontinued Medications Generic Name Dose Route Start Last Admin Trade Name Freq PRN Reason Stop Dose Admin Acetaminophen 1,000 mg 10/09/18 15:57 10/09/18 16:35 Ofirmev Injection - IVPB 10/09/18 15:58 1,000 mg ONCE ONE Administration Ketorolac Tromethamine 30 mg 10/09/18 17:54 10/09/18 18:01 Toradol Injection - IVPUSH 10/09/18 17:55 30 mg ONCE ONE Administration Methocarbamol 1,000 mg 10/09/18 17:54 10/09/18 18:00 Robaxin - PO 10/09/18 17:55 1,000 mg ONCE ONE Administration Morphine Sulfate 4 mg 10/09/18 15:57 10/09/18 16:30 Morphine Injection - IVPUSH 10/09/18 15:58 4 mg ONCE ONE Administration Sodium Chloride 1,000 ml 10/09/18 15:57 10/09/18 16:30 Normal Saline - IV 10/09/18 15:58 1,000 ml ONCE ONE Administration *DC/Admit/Observation/Transfer Diagnosis at time of Disposition: Low back pain Qualifiers: Chronicity: acute Back pain laterality: bilateral Sciatica presence: unspecified whether sciatica present Qualified Code(s): M54.5 - Low back pain - Discharge Dispostion Disposition: AGAINST MEDICAL ADVICE Decision to Admit order: No - Prescriptions Prescriptions: Oxycodone HCl/Acetaminophen [Percocet 5/325 -] 1 tab PO Q6H #14 tablet MDD 4 - Referrals Referrals: Cordell Reynolds [Primary Care Provider] - - Patient Instructions Additional Instructions: You were seen in the Emergency Department for evaluation of back pain. You have elected to leave against medical advice. If your symptoms worsen or change, please return to the Emergency Department. Also return if you develop fevers/ chills, worsening pain, change in strength or sensation, or any new/concerning symptoms. - Post Discharge Activity
== END 2018-10-09 19:25 | disposition left against medical advice (07) ==
LOC: FER 15:08
PROC: 3E0337Z Introduction of Electrolytic and Water Balance Substance into Peripheral Vein, Percutaneous Approach (ICD-10-PCS; principal; 2018-10-09)
PROC: 3E033NZ Introduction of Analgesics, Hypnotics, Sedatives into Peripheral Vein, Percutaneous Approach (ICD-10-PCS; 2018-10-09)
PROC: 3E0333Z Introduction of Anti-inflammatory into Peripheral Vein, Percutaneous Approach (ICD-10-PCS; 2018-10-09)
DX: M54.5 Low back pain (principal)
CPT/HCPCS: 36415; 80053; 81003; 81015; 85025; 85610; 85730; 86850; 86900; 86901; 99283-25; J0131; J7030

== ENCOUNTER 2020-03-15 10:37 | Emergency (ER) | payer OTHER ==
--- NOTE | 2020-03-15 10:39 | PDOC ---
History of Present Illness - General Chief Complaint: Back Pain Stated Complaint: BACK PAIN Time Seen by Provider: 03/15/20 10:38 History Source: Patient Exam Limitations: No Limitations - History of Present Illness Initial Comments: 69 year old male with PMH L4-L5 spinal fusion, HTN, HLD presented to ED for left low back pain since yesterday. Pt reported his back pain began after working in the closet on the ground doing heavy work, and was progressive in nature, non- radiating. Pt reported his pain feels similar to 2 years ago when he fell off the step of the bus into the snow, and he would like the same medications he was given then today. Pt denied loss of bowel/bladder, weight loss, numbness, weakness, IV drug use, diabetes, spinal injections. Pt admitted to increased urinary frequency. Pt denied recent trauma. ROS General: denied fever, chills, generalized weakness. HEENT: denied sore throat, rhinorrhea, ear pain. Cardiovascular: denied chest pain, palpitations, syncope, diaphoresis. Respiratory: denied shortness of breath, cough, sputum production, hemoptysis. Gastrointestinal: denied abdominal pain, nausea, vomiting, diarrhea, constipation, blood in stool. Genitourinary: denied dysuria, increased urinary frequency, hematuria, urinary incontinence, flank pain. Back: admitted to back pain. Musculoskeletal: denied joint pain, muscle pain, joint swelling. Neurological: denied headache, dizziness, numbness, tingling, weakness. Integumentary: denied rash, laceration, abrasion. Hematologic/Lymphatic: denied bruising or bleeding. PE Constitutional: Well-nourished, Well-developed, appearing stated age. HEENT: head is normocephalic, atraumatic. EOMI. PERRLA. Neck: supple. Full ROM. Cardiovascular: regular heart rhythm. Normal S1 and S2. no murmurs. no pericardial friction rub. Respiratory: clear to auscultation bilaterally. no crackles, rhonchi or wheezing. no stridor. Gastrointestinal: soft, flat, nontender. normal bowel sounds. no rebound, g uarding, or masses. Back: no rash. no midline T-spine or L-spine tenderness to palpation. no muscular tenderness to palpation. straight leg test negative bilaterally. 5/5 sdtrength all extremities. ambulates with limp with cane. Extremities: peripheral pulses intact and equal. no lower extremity edema noted. Neurological: CN 2-12 grossly intact. moves all four extremities. Psych: awake, alert, oriented x3. follows commands. answers questions appropriately. Past History - Medical History Allergies/Adverse Reactions: Allergies Allergy/AdvReac Type Severity Reaction Status Date / Time diphenhydramine Allergy Verified 03/15/20 10:38 [From Benadryl] RAMIREZ Allergy Uncoded 03/15/20 10:38 Home Medications: Ambulatory Orders Lidocaine 5% Patch [Lidoderm Patch -] 1 patch TP DAILY #7 patch 03/15/20 Methocarbamol [Robaxin -] 500 mg PO TID #21 tablet 03/15/20 Oxycodone HCl/Acetaminophen [Percocet 5-325 mg Tablet] 1 tab PO DAILY #5 tablet MDD 1 tab 03/15/20 - Psycho-Social/Smoking History Smoking History: Never smoked Have you smoked in the past 12 months: No Number of Cigarettes Smoked Daily: 0 Medical Decision Making - Medical Decision Making 69 year old male with above PMH presented to ED for exacerbation of left low back pain. Initial Vital Signs Temp Pulse Resp BP Pulse Ox 98.8 F 90 18 140/94 96 03/15/20 10:37 03/15/20 10:37 03/15/20 10:37 03/15/20 10:37 03/15/20 10:37 Afebrile. No tachycardia. No tachypnea. Mild hypertension. No hypoxia on room air. Orders Acetaminophen [Tylenol -] 975 mg PO ONCE ONE Ketorolac Injection [Toradol Injection -] 60 mg IM ONCE ONE Lidocaine 5% Patch [Lidoderm Patch -] 1 patch TP ONCE ONE Methocarbamol [Robaxin -] 500 mg PO ONCE ONE UA 03/15/20 12:30 Pt ambulating around ED with cane, no limp, improved antalgic gait. Reported back pain is improved, but he is uncomfortable on the stretcher. Laboratory Last Values Urine Color Yellow 03/15/20 11:28 Urine Appearance Clear 03/15/20 11:28 Urine pH 5.0 (4.5-8) 03/15/20 11:28 Urine Protein Negative (NEGATIVE) 03/15/20 11:28 Urine Glucose (UA) Negative (NEGATIVE) 03/15/20 11:28 Urine Ketones Negative (NEGATIVE) 03/15/20 11:28 Urine Blood Negative (NEGATIVE) 03/15/20 11:28 Urine Nitrite Negative (NEGATIVE) 03/15/20 11:28 Urine Bilirubin Negative (NEGATIVE) 03/15/20 11:28 Urine Urobilinogen 0.2 (0.2-1.0) 03/15/20 11:28 Ur Leukocyte Esterase Negative (NEGATIVE) 03/15/20 11:28 Urine negative for hematuria, negative for UTI. Pt discharged. Discharge Medications Lidocaine 5% Patch [Lidoderm -] 1 patch TP DAILY #7 patch 03/15/20 Methocarbamol [Robaxin -] 500 mg PO TID #21 tablet 03/15/20 Oxycodone HCl/Acetaminophen [Percocet 5-325 mg Tablet] 1 tab PO DAILY #5 tablet MDD 1 tab 03/15/20 Discharge - Discharge Information Problems reviewed: Yes Clinical Impression/Diagnosis: Back pain, Low back pain, Chronic pain Condition: Improved Disposition: HOME - Admission No - Additional Discharge Information Prescriptions: Lidocaine 5% Patch [Lidoderm Patch -] 1 patch TP DAILY #7 patch Oxycodone HCl/Acetaminophen [Percocet 5-325 mg Tablet] 1 tab PO DAILY #5 tablet MDD 1 tab Methocarbamol [Robaxin -] 500 mg PO TID #21 tablet - Follow up/Referral Referrals: Alejandro Day MD [Staff Physician] - Cordell Reynolds [Primary Care Provider] - - Patient Discharge Instructions Patient Printed Discharge Instructions: DI for Low Back Pain Additional Instructions: Follow up with your primary care doctor within 3 days regarding your ER visit. Your care is not complete until you follow up. Take ibuprofen 400 mg every 6-8 hours as needed for back pain. Take over the counter. Take with food as this can irritate your stomach. Take tylenol 1000 mg every 8 hours as needed for back pain. Take over the counter. Do not exceed 4,000 mg in a 24 hour period, as this is toxic. I have prescribed you a muscle relaxer, take as needed, do not drive or operate heavy machinery while taking this medication. I have prescribed you lidocaine patches, please follow instructions from your pharmacist. -If these are too expensive, a cheaper version over the counter with just 1% less medication, that is just as effective. I have prescribed you Percocet, for back pain. Take only when the tylenol and ibuprofen is not working. Take only when you will not be driving or operating heavy machinery. Return to the ER for increasing pain, loss of bowel/bladder function, weight loss, blood in urine, ripping back pain, lighteadedness, chest pain, fever, vomiting or any other new, worsening or concerning symptoms. - Post Discharge Activity
[2020-03-15 10:43] VITALS: BP 140/94; PULSE 90; TEMP 98.8; BMI 32.3
[2020-03-15] MEDS ORDERED: ACETAMINOPHEN 325 MG TABLET (FP) PO ONE (11:15)
[2020-03-15] MEDS ORDERED: METHOCARBAMOL 500 MG TABLET PO ONE (11:15)
[2020-03-15] MEDS ORDERED: LIDOCAINE 5% TOPICAL PATCH TP ONE (11:15)
[2020-03-15] MEDS ORDERED: KETOROLAC TROMETHAMINE 60 MG/2 ML VIAL IM ONE (11:15)
[2020-03-15] MEDS ORDERED: ACETAMINOPHEN 325 MG TABLET (FP) ONE ×2 (11:26→11:30)
[2020-03-15] MEDS ORDERED: METHOCARBAMOL 500 MG TABLET ONE (11:26)
[2020-03-15] MEDS ORDERED: LIDOCAINE 5% TOPICAL PATCH ONE (11:26)
[2020-03-15] MEDS ORDERED: KETOROLAC TROMETHAMINE 60 MG/2 ML VIAL ONE (11:26)
--- NOTE | 2020-03-15 11:50 | PDOC ---
Attending Attestation - Resident Resident Name: Pearl Reyna - ED Attending Attestation I have performed the following: I have examined & evaluated the patient, The case was reviewed & discussed with the resident, I agree w/resident's findings & plan, Exceptions are as noted - HPI HPI: 03/15/20 11:48 69 M with h/o L4-L5 spinal fusion, HTN, HLD presenting to ED with L lower back pain since yesterday. Pt states he was bending over yesterday when pain began. Denies fall or trauma. Denies any weakness/numbness in either leg. No saddle anesthesia or incontinence. - Physicial Exam PE: 03/15/20 11:49 See resident exam - Medical Decision Making 03/15/20 11:49 69 M with L lower back pain. NO evidence of spinal cord injury or cauda equina on exam. Normal neuro exam. Pt ambulating in ED without difficulty. - Pain control - F/u ortho spine Pt is well appearing, with normal vitals. Clinically stable for DC at this time. I discussed the physical exam findings, ancillary test results and final diagnoses with the patient. I answered all of the patient's questions. The patient was satisfied with the care received and felt comfortable with the discharge plan and treatment plan. The patient agrees to follow up with the primary care physician within 24-72 hours. Discharge - Discharge Information Problems reviewed: Yes Clinical Impression/Diagnosis: Back pain, Low back pain, Chronic pain Condition: Improved Disposition: HOME - Additional Discharge Information Prescriptions: Lidocaine 5% Patch [Lidoderm Patch -] 1 patch TP DAILY #7 patch Oxycodone HCl/Acetaminophen [Percocet 5-325 mg Tablet] 1 tab PO DAILY #5 tablet MDD 1 tab Methocarbamol [Robaxin -] 500 mg PO TID #21 tablet - Follow up/Referral Referrals: Cordell Reynolds [Primary Care Provider] - Alejandro Day MD [Staff Physician] - - Patient Discharge Instructions Patient Printed Discharge Instructions: DI for Low Back Pain Additional Instructions: Follow up with your primary care doctor within 3 days regarding your ER visit. Your care is not complete until you follow up. Take ibuprofen 400 mg every 6-8 hours as needed for back pain. Take over the counter. Take with food as this can irritate your stomach. Take tylenol 1000 mg every 8 hours as needed for back pain. Take over the counter. Do not exceed 4,000 mg in a 24 hour period, as this is toxic. I have prescribed you a muscle relaxer, take as needed, do not drive or operate heavy machinery while taking this medication. I have prescribed you lidocaine patches, please follow instructions from your pharmacist. -If these are too expensive, a cheaper version over the counter with just 1% less medication, that is just as effective. I have prescribed you Percocet, for back pain. Take only when the tylenol and ibuprofen is not working. Take only when you will not be driving or operating heavy machinery. Return to the ER for increasing pain, loss of bowel/bladder function, weight loss, blood in urine, ripping back pain, lighteadedness, chest pain, fever, vomiting or any other new, worsening or concerning symptoms. - Post Discharge Activity
[2020-03-15] MEDS ORDERED: LIDOCAINE PATCH REMOVAL MC SCH (22:00)
== END 2020-03-15 12:20 | disposition home or self-care (01) ==
LOC: FER 10:37
PROC: 3E0233Z Introduction of Anti-inflammatory into Muscle, Percutaneous Approach (ICD-10-PCS; principal; 2020-03-15)
DX: M54.5 Low back pain (principal)
CPT/HCPCS: 81003; 87086; 99284-25

== ENCOUNTER 2023-07-12 04:14 | Day surgery (SDC) | payer OTHER ==
[2023-07-10 15:50] VITALS: BMI 33.2
[~2023-07-12 04:14] MED LIST: BUPIVACAINE HCL/PF 0.5% (5 MG/ML) 30 ML VIAL IJ ONE; IOHEXOL 180 MG/1 ML ML IJ ONE; LIDOCAINE HCL 1% PRESERVATIVE FREE - 30ML VIAL IJ ONE; TRIAMCINOLONE ACETONIDE 40 MG/ML 10 ML VIAL IM ONE
[2023-07-12] MEDS ORDERED: LIDOCAINE HCL/PF 1% SDV 5ML VIAL ONE (07:11)
[2023-07-12] MEDS ORDERED: BUPIVACAINE HCL/PF 0.5% (5MG/ML) 10 ML VIAL ONE (07:12)
[2023-07-12] MEDS ORDERED: ACETAMINOPHEN 500 MG TABLET (FP) PO PRN (14:06)
[2023-07-12 16:00] VITALS: BP 110/72; PULSE 60; RESP 18; TEMP 98.1
== END 2023-07-12 15:45 | disposition home or self-care (01) ==
LOC: JASU-SURG 04:14
PROVIDERS: ATTEND Pain Medicine Pain Medicine
PROC: 3E0U3BZ Introduction of Anesthetic Agent into Joints, Percutaneous Approach (ICD-10-PCS; 2023-07-12)
PROC: 3E0U33Z Introduction of Anti-inflammatory into Joints, Percutaneous Approach (ICD-10-PCS; principal; 2023-07-12 14:15)
DX: M53.3 Sacrococcygeal disorders, not elsewhere classified (principal)
CPT/HCPCS: 76000-TC-FY

== ENCOUNTER 2023-08-20 04:33 | Day surgery (SDC) | payer OTHER ==
[2023-08-15 11:15] VITALS: BMI 33.2
[2023-08-20] MEDS ORDERED: DEXAMETHASONE SOD PHOSPHATE 10 MG/1 ML VIAL ONE (07:37)
[2023-08-20] MEDS ORDERED: LIDOCAINE HCL/PF 1% SDV 5ML VIAL ONE (07:37)
[2023-08-20] MEDS ORDERED: ACETAMINOPHEN 500 MG TABLET (FP) PO PRN (11:28)
[2023-08-20] MEDS ORDERED: LIDOCAINE 1% P/F 10 MG/ML VIAL INF ONE ×2 (12:50)
[2023-08-20] MEDS ORDERED: DEXAMETHASONE SOD PHOSPHATE 10 MG/1 ML VIAL IVPUSH ONE ×2 (12:50)
[2023-08-20] MEDS ORDERED: IOHEXOL 180 MG/1 ML ML IJ ONE (12:50)
[2023-08-20 13:24] VITALS: TEMP 97.5
[2023-08-20] MEDS ORDERED: ACETAMINOPHEN 500 MG TABLET (FP) ONE (13:36)
[2023-08-20 14:04] VITALS: BP 112/60; PULSE 68; RESP 18
== END 2023-08-20 14:00 | disposition home or self-care (01) ==
LOC: JASU-SURG 04:33
PROVIDERS: ATTEND Pain Medicine Pain Medicine
PROC: 3E0R3BZ Introduction of Anesthetic Agent into Spinal Canal, Percutaneous Approach (ICD-10-PCS; 2023-08-20)
PROC: 3E0R33Z Introduction of Anti-inflammatory into Spinal Canal, Percutaneous Approach (ICD-10-PCS; principal; 2023-08-20 13:30)
DX: M54.16 Radiculopathy, lumbar region (principal)
CPT/HCPCS: 76000-TC-FY; J1100

== ENCOUNTER 2023-09-23 15:16 | Observation (INO) | payer OTHER ==
[2023-09-23 18:48] LABS: BASO % 0.6 % (0-2.0); HEMATOCRIT 36.6 % (35.4-49); HEMOGLOBIN 11.9 GM/dL (11.7-16.9); MCH 29.2 pg (25.7-33.7); MCHC 32.6 g/dl (32.0-35.9); MEAN CELL VOLUME 89.5 fl (80-96); MEAN PLT VOLUME 8.7 fl (7.5-11.1); MONO % 10.7 % (3.8-10.2); NEUT % 59.7 % (42.8-82.8); PLATELET COUNT 201 10^3/uL (134-434); RBC 4.09 M/mm3 (4.00-5.60); WHITE BLOOD COUNT 10.9 K/mm3 (4.0-10.0)
[2023-09-23 19:09] LABS: POTASSIUM 3.6 mmol/L (3.5-5.1)
[2023-09-23 19:11] LABS: ALBUMIN 3.4 g/dl (3.4-5.0); BLOOD UREA NITROGEN 13.2 mg/dL (7-18); CALCIUM 8.8 mg/dL (8.5-10.1)
[2023-09-23 19:14] LABS: CREATININE 0.6 mg/dL (0.55-1.3)
[2023-09-23 19:16] LABS: BILIRUBIN,TOTAL 0.9 mg/dL (0.2-1); TOT PROT 6.5 g/dl (6.4-8.2)
[2023-09-23] MEDS ORDERED: DULoxetine HCL 60 MG CAPSULE.DR PO SCH (22:00)
[2023-09-23] MEDS ORDERED: MELATONIN 5 MG TABLETS ONE (22:15)
[2023-09-23] MEDS ORDERED: DULoxetine HCL 30 MG CAPSULE.DR PO ONE (22:15)
[2023-09-23] MEDS ORDERED: DOCUSATE SODIUM 100 MG CAPSULE (FP) PO ONE (22:15)
[2023-09-23] MEDS ORDERED: GABAPENTIN 100 MG CAPSULE ONE (22:16)
[2023-09-23] MEDS ORDERED: clonazePAM 2 MG TABLET ONE (22:16)
[2023-09-23] MEDS: MELATONIN 5 MG TABLETS PO SCH (22:22)
[2023-09-23] MEDS: clonazePAM 2 MG TABLET PO SCH (22:22)
[2023-09-23] MEDS: DULoxetine HCL 30 MG CAPSULE.DR PO SCH (22:22)
[2023-09-23] MEDS: GABAPENTIN 100 MG CAPSULE PO SCH (22:22)
[2023-09-23] MEDS: DOCUSATE SODIUM 100 MG CAPSULE (FP) PO SCH (22:22)
[2023-09-24] MEDS ORDERED: ACETAMINOPHEN 325 MG TABLET (FP) ONE (01:27)
[2023-09-24] MEDS: ACETAMINOPHEN 325 MG TABLET (FP) PO PRN ×2 (01:32→21:21)
[2023-09-24] MEDS ORDERED: clonazePAM 0.5 MG TABLET ONE ×2 (06:03→09:15)
[2023-09-24] MEDS ORDERED: GABAPENTIN 100 MG CAPSULE ONE (06:04)
[2023-09-24] MEDS ORDERED: metFORMIN HCL 500 MG TABLET (FP) ONE (06:04)
[2023-09-24] MEDS ORDERED: sitaGLIPtin PHOSPHATE 50 MG TABLET ONE (06:04)
[2023-09-24] MEDS: sitaGLIPtin PHOSPHATE 50 MG TABLET PO SCH (06:42)
[2023-09-24] MEDS: clonazePAM 0.5 MG TABLET PO SCH (06:42)
[2023-09-24] MEDS: metFORMIN HCL 500 MG TABLET (FP) PO SCH (06:42)
[2023-09-24 08:27] LABS: BASO % 0.4 % (0-2.0); EOS % 1.4 % (0-4.5); HEMATOCRIT 35.1 % (35.4-49); HEMOGLOBIN 11.6 GM/dL (11.7-16.9); LYMPH % 27.1 % (8-40); MCH 29.5 pg (25.7-33.7); MCHC 33.2 g/dl (32.0-35.9); MEAN CELL VOLUME 89.1 fl (80-96); MEAN PLT VOLUME 9.4 fl (7.5-11.1); MONO % 11.5 % (3.8-10.2); NEUT % 59.6 % (42.8-82.8); PLATELET COUNT 178 10^3/uL (134-434); RBC 3.94 M/mm3 (4.00-5.60); RDW 13.7 % (11.9-15.9); WHITE BLOOD COUNT 9.7 K/mm3 (4.0-10.0)
[2023-09-24 08:43] LABS: POTASSIUM 3.6 mmol/L (3.5-5.1)
[2023-09-24 08:46] LABS: BLOOD UREA NITROGEN 12.7 mg/dL (7-18)
[2023-09-24 08:49] LABS: CREATININE 0.5 mg/dL (0.55-1.3)
[2023-09-24] MEDS ORDERED: ACETAMINOPHEN 325 MG TABLET (FP) PO PRN ×2 (09:04→09:15)
[2023-09-24] MEDS: ROSUVASTATIN CA 10 MG TABLET PO SCH (09:27)
[2023-09-24] MEDS: LISINOPRIL 10 MG TABLET PO SCH (09:27)
[2023-09-24] MEDS: ASPIRIN 81 MG CHEWABLE TABLETS PO SCH (09:27)
[2023-09-24] MEDS ORDERED: oxyCODONE HCL 5 MG TABLET ONE (09:43)
[2023-09-24] MEDS: oxyCODONE HCL 5 MG TABLET PO PRN (09:50)
[2023-09-24 15:43] VITALS: BMI 32.1
[2023-09-26 20:21] VITALS: RESP 18
[2023-09-27 13:35] VITALS: BP 111/64; PULSE 82; TEMP 98.4
== END 2023-09-27 14:36 ==
LOC: JER 15:16 → JERBED 20:19 → J6S 09-24 14:20
PROVIDERS: ADMIT Internal Medicine; ATTEND Internal Medicine
DX: S42.212A Unspecified displaced fracture of surgical neck of left humerus, initial encounter for closed fracture (principal); W18.39XA Other fall on same level, initial encounter; Z91.81 History of falling; Y93.89 Activity, other specified; Y92.89 Other specified places as the place of occurrence of the external cause; F41.9 Anxiety disorder, unspecified; M54.9 Dorsalgia, unspecified; E11.9 Type 2 diabetes mellitus without complications; E78.5 Hyperlipidemia, unspecified; I10 Essential (primary) hypertension; Z88.8 Allergy status to other drugs, medicaments and biological substances
CPT/HCPCS: 36415; 71046-TC-FY; 73000-TC-LT-FY; 73030-TC-LT-FY; 73200-TC-RT; 80048; 80053; 82962; 85025; 93005; 93010; 97116-GP; 97162-GP; 99285-25; G0378